=== PATIENT | female | born 1970 | race Caucasian/White ===

== ENCOUNTER → 2018-01-07 | Outpatient (CLI) | payer BC ==
--- NOTE | 2018-01-07 21:38 | CT ---
EXAMINATION TYPE: CT abdomen pelvis w con DATE OF EXAM: 01/07/2018 HISTORY: Left sided Abdominal pain CT DLP: 1501.4mGycm Automated Exposure Control for Dose Reduction was Utilized. CONTRAST: CT scan of the abdomen and pelvis is performed with IV Contrast, patient injected with 100 mL of Omni paque 300. COMPARISON: None. FINDINGS: LUNG BASES: No significant abnormality is appreciated. LIVER/GB: No significant abnormality is appreciated. PANCREAS: No significant abnormality is seen. SPLEEN: No significant abnormality is seen. ADRENALS: No significant abnormality is seen. KIDNEYS: No significant abnormality is seen. BOWEL: Oral contrast reaches level of terminal ileum was some spillage into cecum. There is no suspic ious small or large bowel dilatation. UTERUS/ADNEXA: Uterus is surgically absent or markedly atrophic in appearance. Within right ovary the re is 2.0 x 1.8 cm oval low dense lesion could reflect prominent follicle or simple small ovarian cys t axial image 80. Finding can be further evaluated with pelvic ultrasound if desired. Scattered predo minantly left-sided pelvic phleboliths are seen. Left ovary is less well seen. No suspicious left adn exal mass identified. LYMPH NODES: No greater than 1cm abdominal or pelvic lymph nodes are appreciated. OSSEOUS STRUCTURES: There is some facet arthropathy lower lumbar levels. OTHER: No significant additional abnormality is seen. IMPRESSION: No significant acute finding is seen to account for patient's clinical symptoms.
== END | disposition home or self-care (01) ==
LOC: RADCTMAIN 19:24
PROVIDERS: ATTEND Internal Medicine
DX: K51.518 Left sided colitis with other complication (principal)
CPT/HCPCS: 74177; Q9967

== ENCOUNTER → 2019-08-06 | Outpatient (CLI) | payer BC ==
--- NOTE | 2019-08-07 07:37 | XR ---
EXAMINATION TYPE: XR KUB DATE OF EXAM: 08/06/2019 CLINICAL HISTORY: Nephrolithiasis and back pain TECHNIQUE: Single supine KUB image of the abdomen is obtained. COMPARISON: None. FINDINGS: Cholecystectomy clips are seen within the right upper quadrant. No dilated large or small b owel. Visualized portions of the lung bases are well aerated. There are multiple punctate calcificati ons in the left hemipelvis that are presumed to be on the basis of phleboliths. No calculi are seen a long the courses of the ureters nor overlying the renal shadows. Osseous structures appear intact. IMPRESSION: 1. Multiple punctate calcifications in the low left hemipelvis are presumed to be phleboliths. No rad iographically visible calcifications are seen over the renal shadows.
== END | disposition home or self-care (01) ==
LOC: RADXRMAIN 18:03
PROVIDERS: ATTEND Internal Medicine
DX: N20.0 Calculus of kidney (principal)
CPT/HCPCS: 74018

== ENCOUNTER → 2020-02-25 | Outpatient (CLI) | payer BC ==
[2020-02-25 11:33] LABS: Basophils # (A) 0.1 k/uL (0-0.2); Basophils % (A) 1 %; Eosinophils # (A) 0.2 k/uL (0-0.7); Eosinophils % (A) 3 %; HCT 44.7 % (34.0-46.0); HGB 14.8 gm/dL (11.4-16.0); Lymphocytes # (A) 2.1 k/uL (1.0-4.8); Lymphocytes % (A) 31 %; MCH 28.5 pg (25.0-35.0); MCHC 33.1 g/dL (31.0-37.0); MCV 85.9 fL (80.0-100.0); Monocytes # (A) 0.3 k/uL (0-1.0); Monocytes % (A) 5 %; Neutrophils # (A) 4.1 k/uL (1.3-7.7); Neutrophils % (A) 59 %; Platelet Count 333 k/uL (150-450); RBC 5.21 m/uL (3.80-5.40); RDW 13.1 % (11.5-15.5); WBC 6.9 k/uL (3.8-10.6)
[2020-02-25 12:26] LABS: Erythrocyte Sedimentation Rate 4 mm/hr (0-20)
[2020-02-25 17:01] LABS: C Reactive Protein <0.4 mg/dL (0.0-0.8); Uric Acid 3.1 mg/dL (2.9-7.7)
== END | disposition home or self-care (01) ==
LOC: LABWHC1 11:15
PROVIDERS: ATTEND Orthopaedic Surgery
DX: M25.561 Pain in right knee (principal); Z96.651 Presence of right artificial knee joint
CPT/HCPCS: 36415; 84550; 85025; 85652; 86140

== ENCOUNTER → 2020-09-14 | Outpatient (CLI) | payer BC ==
[2020-09-14 13:23] VITALS: BP 124/84; PULSE 87; RESP 16; TEMP 98
--- NOTE | 2020-09-14 13:31 | P.CONS ---
History of Present Illness - Reason for Consult Consult date: 09/14/20 - Chief Complaint neck and left shoulder pain - History of Present Illness this is a 50-year-old lady with history of neck pain for which she had cervical paravertebral frequency ablation on the right side in our clinic about 6 years ago. She came back today with a new pain on the left side of her neck that has been there for about 2 months and also she has tendinitis in the left shoulder and was seen by an orthopedic surgeon who recommended physical therapy for her left shoulder problem. She occasionally feels numbness and tingling in both hands however this is not a constant complaint. She denies any bowel or bladder dysfunction or any weakness in the lower or upper extremities. The patient takes [id number] medications for her pain. She had a cervical spine MRI which showed mild disc degeneration as with mild edema around the C4 5 facet joint on the right side but did not show any nerve root or spinal cord compression.the patient also feels headache that starts in the back of her head and goes to the front bilaterally. Review of Systems Constitutional: Denies chills, Denies fever Eyes: denies blurred vision, denies pain Ears, nose, mouth and throat: Denies headache, Denies sore throat Musculoskeletal: Reports as per HPI Integumentary: Denies pruritus, Denies rash Neurological: Reports as per HPI Past Medical History Past Medical History: Diabetes Mellitus, Musculoskeletal Disorder, Thyroid Disorder Additional Past Medical History / Comment(s): frequent neck pain, hx migraine headaches, left sided abd. pain, bowel habit changes History of Any Multi-Drug Resistant Organisms: None Reported Past Surgical History: Bladder Surgery, Hysterectomy Additional Past Surgical History / Comment(s): laparotomy for adhesions Past Anesthesia/Blood Transfusion Reactions: Previous Problems w/ Anesthesia, Postoperative Nausea & Vomiting (PONV) Additional Past Anesthesia/Blood Transfusion Reaction / Comm: difficulty waking up after anes. Past Psychological History: No Psychological Hx Reported Smoking Status: Never smoker Past Alcohol Use History: Occasional Past Drug Use History: None Reported - Past Family History Mother Family Medical History: No Reported History Medications and Allergies Home Medications Medication Instructions Recorded Confirmed Type Dicyclomine [Bentyl] 20 mg PO QID PRN 02/01/16 02/03/16 History Levothyroxine Sodium [Synthroid] 50 mcg PO DAILY 02/01/16 02/03/16 History metFORMIN HCL [Glucophage] 500 mg PO TID 02/01/16 02/03/16 History Allergies Allergy/AdvReac Type Severity Reaction Status Date / Time No Known Allergies Allergy Verified 02/01/16 15:02 Physical Exam Vitals: Vital Signs Temp Pulse Resp BP Pulse Ox 09/14/20 13:12 98.0 F 87 16 124/84 97 - Constitutional General appearance: obese - EENT Eyes: PERRLA - Neurologic neuro exam of the upper extremities showed normal and symmetrical muscle strength bilaterally and symmetrically. She has tenderness in the cervical paravertebral musculature on the left side and around the left trapezius. She has limited range of motion of the left shoulder joint to less than 90 abduction. She has mildly decreased range of motion of the cervical spine especially to the left rotation. Neurologic: CNII-XII intact - Psychiatric Psychiatric: A&O x's 3, appropriate affect, intact judgment & insight Assessment and Plan Plan: this is a 50-year-old lady with a history of left-sided neck pain and left shoulder pain due to tendinitis. The patient is undergoing physical therapy for left shoulder pain. Her neck pain may be due to myofascial pain and cervical spondylosis. I think we can start by doing trigger point injection in the left cervical paravertebral musculature and left trapezius muscle and if there is no improvement then we'll plan on doing a diagnostic cervical medial branch block for levels C2 and C3 and third occipital nerve, C4 and C5. I thank you for the referral
== END | disposition home or self-care (01) ==
LOC: PNWHC3 12:35
PROVIDERS: ATTEND Anesthesiology
DX: M54.2 Cervicalgia (principal); M75.22 Bicipital tendinitis, left shoulder; E11.9 Type 2 diabetes mellitus without complications; E07.9 Disorder of thyroid, unspecified; Z79.84 Long term (current) use of oral hypoglycemic drugs; Z79.890 Hormone replacement therapy; Z79.899 Other long term (current) drug therapy
CPT/HCPCS: 99211

== ENCOUNTER 2020-10-25 07:03 | Day surgery (SDC) | payer BC ==
[2020-10-24 12:28] VITALS: BMI 33.7
[~2020-10-25 07:03] MED LIST: LACTATED RINGERS 1,000 ML IV SCH
[2020-10-25 07:19] VITALS: RESP 16; TEMP 96.1
[2020-10-25 07:19] LABS: Glucose,Whole Blood 106 mg/dL (75-99)
[2020-10-25] MEDS ORDERED: methylPREDNISolone ACETATE 40 MG/ML 1 ML VIAL ONE (07:50)
[2020-10-25] MEDS ORDERED: ROPIVACAINE 5MG/ML 20ML VIAL ONE (07:50)
--- NOTE | 2020-10-25 08:06 | P.PCN ---
Date of Procedure: 10/25/20 Procedure(s) Performed: PREOPERATIVE DIAGNOSI= 1-myofascial pain syndrome and cervical and shoulder area . 2- Cervical Spondylosis with Facet Arthropathy.without myelopathy POSTOPERATIVE DIAGNOSIS: Same as preop diagnosis PROCEDURES: Diagnostic = trigger point injection left side cervical paraspinal muscle and left trapezius muscle (Total of 4 trigger point injected on the left side cervical paraspinal muscles and left trapezius muscles ) ANESTHESIA: none . EBL: Minimal PROCEDURE INDICATION: The patient with neck pain secondary to myofascial pain syndrome, unresponsive to more conservative treatments. PROCEDURE DESCRIPTION / TECHNIQUE: The patient was seen and identified in the preoperative area. Risks, benefits, complications, and alternatives were discussed with the patient, the patient agreed to proceed with the procedure and signed . Vital signs remained stable throughout the procedure. Patient was taken to the OR and time out was completed. The patient was placed in the sitting position on the procedure table. The cervical area was prepped and draped in the usual sterile fashion. Critical pause was taken. Vital signs were closely monitored during the procedur. Then after that each of the trigger point injected using ropivacaine 0.5% mixed with 40 mg of Depo-Medrol , and 2 mL of the mixture injected at each trigger point after negative aspiration, actuall y done using 25-gauge needle, under was no paresthesia during the injection Total of 8 ML of ropivacaine 0. 5% was used COMPLICATIONS: No acute complications. DISPOSITION / PLANS: The patient was placed in a supine position and transferred to the recovery area in a stable condition for observation and was discharged from the recovery room after meeting discharge criteria. Home discharge inst ructions given to the patient by the staff. The patient was reexamined prior to discharge. The patient will schedule a follow up in the clinic in 2-4 weeks.
[2020-10-25 08:19] VITALS: BP 104/70; PULSE 82
== END 2020-10-25 08:21 | disposition home or self-care (01) ==
LOC: ORPAIN 07:03
PROVIDERS: ATTEND Specialist
DX: M79.18 Myalgia, other site (principal); M47.812 Spondylosis without myelopathy or radiculopathy, cervical region; E11.9 Type 2 diabetes mellitus without complications; Z90.710 Acquired absence of both cervix and uterus
CPT/HCPCS: 20553; J1030; J2795

== ENCOUNTER → 2020-10-25 | Outpatient (CLI) | payer BC ==
[2020-10-25 15:14] LABS: Basophils # (A) 0.1 k/uL (0-0.2); Basophils % (A) 1 %; Eosinophils # (A) 0.1 k/uL (0-0.7); Eosinophils % (A) 1 %; HCT 44.1 % (34.0-46.0); HGB 14.9 gm/dL (11.4-16.0); Lymphocytes % (A) 11 %; MCH 28.8 pg (25.0-35.0); MCHC 33.8 g/dL (31.0-37.0); MCV 85.4 fL (80.0-100.0); Monocytes # (A) 0.3 k/uL (0-1.0); Monocytes % (A) 4 %; Neutrophils # (A) 7.9 k/uL (1.3-7.7); Neutrophils % (A) 83 %; Platelet Count 256 k/uL (150-450); RBC 5.17 m/uL (3.80-5.40); RDW 13.2 % (11.5-15.5); WBC 9.6 k/uL (3.8-10.6)
[2020-10-25 16:33] LABS: Erythrocyte Sedimentation Rate 8 mm/hr (0-20)
[2020-10-26 03:06] LABS: ALT 18 U/L (8-44); AST 9 U/L (13-35); African American GFR (CKD) 98.9 (60.0-200.0); Albumin/Globulin Ratio 1.92 (1.60-3.17); Alkaline Phosphatase 109 U/L (41-126); C Reactive Protein <0.4 mg/dL (0.0-0.8); Calcium 9.8 mg/dL (8.7-10.3); Carbon Dioxide 23.3 mmol/L (21.6-31.8); Chloride 105 mmol/L (96-109); Globulin 2.4 g/dL (1.6-3.3); Glucose 112 mg/dL (70-110); Non-African American GFR(CKD) 85.4 (60.0-200.0); Potassium 4.2 mmol/L (3.5-5.5); Rheumatoid Factor, Qnt 6 IU/mL (0-15); Sodium 140 mmol/L (135-145); Total Bilirubin 0.5 mg/dL (0.3-1.2); Uric Acid 3.1 mg/dL (2.9-7.7)
[2020-10-26 05:28] LABS: Cyclic Citrull Pep IgG Unit 4.1 U/mL; Cyclic Citrullinated Pep IgG POSITIVE (NEGATIVE)
[2020-10-26 10:42] LABS: Free Kappa Lt Chain Qnt, Serum 1.55 mg/dL (0.33-1.94)
== END | disposition home or self-care (01) ==
LOC: LABWHC1 14:32
PROVIDERS: ATTEND Internal Medicine
DX: M75.02 Adhesive capsulitis of left shoulder (principal)
CPT/HCPCS: 36415; 80053; 83883; 84550; 85025; 85652; 86038; 86140; 86200; 86431

== ENCOUNTER → 2020-11-14 | Outpatient (CLI) | payer BC ==
[2020-11-14 09:39] VITALS: BP 113/50; PULSE 84; RESP 20; TEMP 97.8
--- NOTE | 2020-11-14 10:05 | P.PN ---
Subjective Progress Note Date: 11/14/20 This is a 50-year-old lady with history of neck and left arm pain. When I saw the patient first time she was complaining of neck and left shoulder pain however a few weeks ago the pain started to go down to her left hand with numbness and tingling in all fingers as she states. She describes the pain as burning in quality. She denies any surgeries on the neck on the left shoulder. She takes Lyrica 100 mg at night and Tylenol with Codeine No. 4 occasionally. Patient denies new-onset weakness, bowel/bladder incontinence, or any other signs or symptoms of cauda equina syndrome. There are no signs of acute intoxication, and no indications of medication diversion or overuse. In addition to above, 13-point review of systems is also negative for chest pain, shortness of breath, changes in vision, changes in hearing, new onset weakness, abdominal pain, diarrhea, extreme fatigue, malaise, fever, skin changes, homicidal or suicidal ideation, or bowel or bladder incontinence. Vital Signs: Reviewed in EMR Gen: AAOx3, NAD HEENT: PERRLA,hearing grossly normal Pulm: resp unlabored Neck: supple, trachea midline Neuro exam of the upper extremities: Decreased left elbow flexion and extension strength to 4 out of 5 and decreased left deltoid strength to 4 out of 5 due to shoulder pain. Decreased left biceps reflex compared to the right side and also decreased left triceps reflex. Positive tenderness around the left shoulder joint anteriorly and posteriorly, positive tenderness in the left cervical paravertebral musculature. Decreased range of motion of the left shoulder joint to less than 90 abduction. Neuro: CN II-XII grossly intact, Imaging: Reviewed in EMR/chart Assessment: Cervical spondylosis without radiculopathy Left cervical radiculopathy Left shoulder arthropathy Plan: 1. Explanation: Opioid and psychological risk scores were reviewed. Diagnoses, prognoses, and multiple treatment options including but not limited to physical therapy, interventional therapies, adjuvant medical therapies, narcotic medication therapies, and surgery were discussed with the patient and all questions were answered to the patient's satisfaction. 2. Opioid agreement: Signed with the patient and the patient is warned not to use opioids while driving or before driving and not to combine opioids with benzodiazepines or alcohol. 3. Counseling: The patient was counseled extensively on SMOKING CESSATION, BODY MASS INDEX, EXERCISE. Specifically, the patient was instructed regarding the importance of smoking cessation, obesity, and exercise in the context of both chronic pain and overall health. 4. Procedures: Scheduled for cervical epidural steroid injection under fluoroscopic guidance at C7-T1 level in the left paramedian approach 5. Consultations: None 6. Investigations: None 7. Medications: Increase Lyrica to 100 mg twice a day 8. Disposition: Return to the above-mentioned procedure as soon as possible 9. Maps were reviewed and were appropriate. Objective - Vital Signs Vital signs: Vital Signs Temp 97.8 F 11/14/20 09:33 Pulse 84 11/14/20 09:33 Resp 20 11/14/20 09:33 BP 113/50 11/14/20 09:33 Pulse Ox 96 11/14/20 09:33
== END | disposition home or self-care (01) ==
LOC: PNWHC3 09:20
PROVIDERS: ATTEND Anesthesiology
DX: M47.22 Other spondylosis with radiculopathy, cervical region (principal); M19.012 Primary osteoarthritis, left shoulder; Z79.899 Other long term (current) drug therapy
CPT/HCPCS: 99211

== ENCOUNTER 2020-11-30 06:24 | Emergency (ER) | payer BC ==
[2020-11-30 06:32] VITALS: RESP 18; TEMP 98.9
--- NOTE | 2020-11-30 06:40 | ED ---
Female Urogenital HPI - General Chief complaint: Urogenital Stated complaint: Difficulty urinating post-op Time Seen by Provider: 11/30/20 06:33 Source: patient Mode of arrival: ambulatory Limitations: no limitations - History of Present Illness Initial comments: 50yo female with hx of kidney stone who underwent shoulder surgery yesterday presenting today to the ER for cc of urinary retention. pt states she has has not been urinating since the surgery. Pt states she left the outpatient surgical site at 730PM. . she states that when she does urinate it "dribbles". Pt states she does not believe she had a medrano placed during surgery. pt states that at times the pain does radiate towards the right flank. Patient denies nausea, vomiting, fevers. patient has no additional complaints upon arrival patient appears uncomfortable stating this is a lot of abdominal pressure. - Related Data Home Medications Medication Instructions Recorded Confirmed Atorvastatin Calcium [Lipitor] 20 mg PO HS 09/14/20 11/09/20 FLUoxetine HCL [PROzac] 20 mg PO DAILY 09/14/20 11/09/20 Meloxicam [Mobic] 15 mg PO HS 09/14/20 11/09/20 Omeprazole [PriLOSEC] 20 mg PO DAILY 09/14/20 11/09/20 Pregabalin [Lyrica] 100 mg PO HS 09/14/20 11/09/20 Semaglutide [Ozempic] 0.25 mg SQ Q7DAYS 09/14/20 11/09/20 lisinopriL [Zestril] 2.5 mg PO HS 09/14/20 11/09/20 hydrOXYzine pamoate [Vistaril] 25 mg PO HS 11/09/20 11/09/20 Allergies Allergy/AdvReac Type Severity Reaction Status Date / Time No Known Allergies Allergy Verified 11/30/20 06:32 Review of Systems ROS Statement: Those systems with pertinent positive or pertinent negative responses have been documented in the HPI. ROS Other: All systems not noted in ROS Statement are negative. Past Medical History Past Medical History: Diabetes Mellitus, Musculoskeletal Disorder, Thyroid Disorder Additional Past Medical History / Comment(s): frequent neck pain, hx migraine headaches, left sided abd. pain, bowel habit changes History of Any Multi-Drug Resistant Organisms: None Reported Past Surgical History: Orthopedic Surgery Additional Past Surgical History / Comment(s): laparotomy for adhesions Past Anesthesia/Blood Transfusion Reactions: Previous Problems w/ Anesthesia, Postoperative Nausea & Vomiting (PONV) Additional Past Anesthesia/Blood Transfusion Reaction / Comment(s): difficulty waking up after anes. Past Psychological History: No Psychological Hx Reported Smoking Status: Never smoker Past Alcohol Use History: Occasional Past Drug Use History: None Reported - Past Family History Mother Family Medical History: No Reported History General Exam - General Exam Comments Initial Comments: General: The patient is awake and alert, in no distress, and does not appear acutely ill. Eye: Pupils are equal, round and reactive to light, extra-ocular movements are intact. No nystagmus. There is normal conjunctiva bilaterally. No signs of icterus. Cardiovascular: There is a regular rate and rhythm. No murmur, rub or gallop is appreciated. Respiratory: Lungs are clear to auscultation, respirations are non-labored, breath sounds are equal. No wheezes, stridor, rales, or rhonchi. Gastrointestinal: Soft, non-distended, suprapubic tenderness with supination of the abdomen, abdomen without masses or organomegaly noted. There is no rebound or guarding present. Musculoskeletal: Normal ROM, no tenderness. Strength 5/5. Sensation intact. Radial pulses equal bilaterally 2+. Neurological: A&O x 3. CN II-XII intact grossly, There are no obvious motor or sensory deficits. Coordination appears grossly intact. Speech is normal. Skin: Skin is warm and dry and no rashes or lesions are noted. Psychiatric: Cooperative, appropriate mood & affect, normal judgment. Limitations: no limitations Course Vital Signs 11/30/20 11/30/20 06:31 08:09 Temperature 98.9 F 98.9 F Pulse Rate 108 H 98 Respiratory 18 18 Rate Blood Pressure 133/79 131/89 O2 Sat by Pulse 95 95 Oximetry Medical Decision Making - Medical Decision Making UA unremarkable. hx of bladder sling/post operative scarring. pt did not have medrano catheter placed during procedure yesterday this was confirmed by surgeon (pt texting him personally). Steady drainage ~1500cc from bladder. pt has no significant hydronephrosis. no stone identified. no hematuria. pt states she feels better and at this time i feel she is stable for discharge with pcp and urology f/u. medrano will be left in place. discussed use/return parameters and monitoring for infection. pt discharged appearing well. Dr. Rojas is agreeable to care plan. - Lab Data Lab Results 11/30/20 Range/Units 06:50 Urine Color Yellow Urine Appearance Clear (Clear) Urine pH 6.0 (5.0-8.0) Ur Specific [place] 1.013 (1.001-1.035) Urine Protein Negative (Negative) Urine Glucose (UA) 2+ H (Negative) Urine Ketones Negative (Negative) Urine Blood Negative (Negative) Urine Nitrite Negative (Negative) Urine Bilirubin Negative (Negative) Urine Urobilinogen <2.0 (<2.0) mg/dL Ur Leukocyte Esterase Negative (Negative) Disposition Clinical Impression: Urinary retention Disposition: HOME SELF-CARE Condition: Good Instructions (If sedation given, give patient instructions): Acute Urinary Retention in Women (ED) Additional Instructions: Please use medication as discussed. Please follow-up with family doctor in the next 2 days, urology in the next week. Please return to emergency room if the symptoms increase or worsen or for any other concerns. Is patient prescribed a controlled substance at d/c from ED?: No Referrals: Celia Ortega MD [Primary Care Provider] - 1-2 days Musa Wright MD [STAFF PHYSICIAN] - 1-2 days Time of Disposition: 07:40
[2020-11-30 07:02] LABS: Appearance,Urine Clear (Clear); Bilirubin,Urine Negative (Negative); Blood,Urine Negative (Negative); Color,Urine Yellow; Glucose,Urine (UA) 2+ (Negative); Ketones,Urine Negative (Negative); Leukocyte Esterase,Urine Negative (Negative); Nitrite,Urine Negative (Negative); Protein,Urine Negative (Negative); Specific Gravity,Urine 1.013 (1.001-1.035); Urobilinogen,Urine <2.0 mg/dL (<2.0)
--- NOTE | 2020-11-30 07:33 | US ---
EXAMINATION TYPE: US renals and bladder DATE OF EXAM: 11/30/2020 COMPARISON: NONE CLINICAL HISTORY: 50-year-old female urinary retention. TECHNIQUE: Multiple sonographic images of the kidneys are obtained. FINDINGS: EXAM MEASUREMENTS: Right Kidney: 11.3 x 4.6 x4.8 cm Left Kidney: 11.2 x 5.7 x 5.4 cm Retail Selling Floor Leader notes: Patient of large body habitus. Technically difficult and limited study. Right Kidney: no obvious hydronephrosis, limited visualization Left Kidney: no obvious hydronephrosis, limited visualization Bladder: Suboptimally visualized as there is a Mccrary in place IMPRESSION: Technically difficult and limited exam. No hydronephrosis seen. Mccrary catheter decompresses the bladd er.
[2020-11-30 08:11] VITALS: BP 131/89; PULSE 98
== END 2020-11-30 08:11 | disposition home or self-care (01) ==
LOC: EC 06:24
DX: R33.9 Retention of urine, unspecified (principal); R30.0 Dysuria; E11.9 Type 2 diabetes mellitus without complications; Z79.1 Long term (current) use of non-steroidal anti-inflammatories (NSAID); Z79.899 Other long term (current) drug therapy; Z79.84 Long term (current) use of oral hypoglycemic drugs
CPT/HCPCS: 51702; 76770; 81003; 99284

== ENCOUNTER → 2020-12-22 | Outpatient (CLI) | payer BC ==
[2020-12-22 13:24] LABS: Basophils # (A) 0.1 k/uL (0-0.2); Basophils % (A) 1 %; Eosinophils # (A) 0.3 k/uL (0-0.7); Eosinophils % (A) 4 %; HGB 14.1 gm/dL (11.4-16.0); Lymphocytes # (A) 1.6 k/uL (1.0-4.8); Lymphocytes % (A) 24 %; MCH 28.4 pg (25.0-35.0); MCHC 32.1 g/dL (31.0-37.0); MCV 88.5 fL (80.0-100.0); Mean Platelet Volume 7.4; Monocytes # (A) 0.3 k/uL (0-1.0); Monocytes % (A) 5 %; Neutrophils # (A) 4.3 k/uL (1.3-7.7); Neutrophils % (A) 64 %; Platelet Count 279 k/uL (150-450); RBC 4.98 m/uL (3.80-5.40); RDW 14.1 % (11.5-15.5); WBC 6.8 k/uL (3.8-10.6)
[2020-12-22 14:58] LABS: Erythrocyte Sedimentation Rate 6 mm/hr (0-20)
[2020-12-22 20:53] LABS: ALT 29 U/L (8-44); AST 12 U/L (13-35); African American GFR (CKD) 98.9 (60.0-200.0); Alkaline Phosphatase 109 U/L (41-126); Bilirubin, Conjugated <0.20 mg/dL (0.20-0.40); C Reactive Protein <0.4 mg/dL (0.0-0.8); Calcium 9.4 mg/dL (8.7-10.3); Carbon Dioxide 26.3 mmol/L (21.6-31.8); Chloride 106 mmol/L (96-109); Non-African American GFR(CKD) 85.4 (60.0-200.0); Potassium 4.5 mmol/L (3.5-5.5); Sodium 140 mmol/L (135-145); Total Bilirubin 0.4 mg/dL (0.2-1.2); Total Protein 6.3 g/dL (6.2-8.2)
== END | disposition home or self-care (01) ==
LOC: LABWHC1 12:14
PROVIDERS: ATTEND Internal Medicine Rheumatology
DX: M06.4 Inflammatory polyarthropathy (principal); Z79.899 Other long term (current) drug therapy
CPT/HCPCS: 36415; 80051; 82040; 82247; 82310; 82565; 84075; 84155; 84450; 84460; 84520; 85025; 85652; 86140

== ENCOUNTER 2021-01-24 06:13 | Day surgery (SDC) | payer BC ==
[2021-01-19 14:53] VITALS: BMI 34.0
[2021-01-24] MEDS ORDERED: LIDOCAINE 1% (10MG/ML) FOR IV START INTRADERMA ONE (06:35)
[2021-01-24 06:44] LABS: Glucose,Whole Blood 123 mg/dL (75-99)
[2021-01-24 06:49] VITALS: RESP 16; TEMP 97.9
[2021-01-24] MEDS ORDERED: fentaNYL (PF) 50 MCG/ML 2 ML AMP ONE (06:50)
[2021-01-24] MEDS ORDERED: DEXAMETHASONE SOD PHOSPHATE 10 MG/ML 1 ML VIAL ONE (06:50)
[2021-01-24] MEDS ORDERED: MIDAZOLAM 2 MG/2 ML VIAL ONE (06:50)
[2021-01-24] MEDS ORDERED: IOPAMIDOL M200 10 ML VIAL ONE (06:50)
--- NOTE | 2021-01-24 07:17 | P.PCN ---
Date of Procedure: 01/24/21 Procedure(s) Performed: . PROCEDURE 1. Cervical epidural steroid injection under fluoroscopic guidance, C7-T1 ( left paramedian approach )(fluoroscopy images available in the radiology department ) 2. Cervical epidurogram. PREOPERATIVE DIAGNOSIS: 1- Cervical Degenerative Disc Diseases 2- Cervical radiculopathy., 3-cervical spondylosis with cervical Facet arthropathy without myelopathy POSTOPERATIVE DIAGNOSIS: : 1- Cervical Degenerative Disc Diseases , 2- Cervical radiculopathy. 3-,cervical spondylosis with cervical Facet arthropathy without myelopathy ANESTHESIA: Local anesthesia with lidocaine 1 % , and moderate sedation, with Versed 1 mg and Fentanyl 50 mcg. EBL 0 PROCEDURE INDICATION: The patient with neck pain and radiculitis unresponsive to conservative treatment consents for procedure. PROCEDURE DESCRIPTION / TECHNIQUE: The patient was seen and identified in the preoperative area. Risks, benefits, complications, including but not limited to infections ,bleeding , allergic reactions to the medications ,and not complete pain releife, and alternatives were discussed with the patient, the patient agreed to proceed with the procedure and signed the consent. Patient was taken to the OR and time out was completed. The patient was placed in the prone position on the procedure table. A pillow was placed under the patients chest to increase the cervical interlaminar space. The cervical area was prepped and draped in the usual sterile fashion. Vital signs were closely monitored during the procedure. Conscious sedation was used during the procedure to decrease patients anxiety. Using anterior-posterior fluoroscopy, the C7-T1 interlaminar space was identifi ed and the skin over this site was marked and then infiltrated with 1% lidocaine subcutaneously. Subsequently, a 20-gauge 3-1/2-inch Tuohy epidural needle was inserted and advanced toward the epidural space by means of the ``hanging-drop technique and guided by AP and lateral fluoroscopy.the correct needle position in the epidural space was verified with the injection of 2 mL of the water soluble contrast dye Isovue-200 and observing an excellent epidurogram with the epidural spread of the dye, after negative aspiration for blood and CSF and in the absence of paresthesias. then mixture containing 15 mg Dexamethasone and 2 ml of preservative-free normal saline injected and a washout of epidurogram was seen. Needle was withdrawn intact, skin was cleansed, and bandages were applied. Complications= none. Disposition= patient was placed in supine position and transferred to the recovery room area in stable condition and there was no evidence of upper or lower extremity motor or sensory deficit after the procedure patient was discharged from recovery room after discharge criteria met and home discharge instructions was given by the staff and patient will follow with the pain clinic in 2-4 weeks
--- NOTE | 2021-01-24 07:24 | FL ---
EXAMINATION TYPE: FL guided pain mgmt statistic DATE OF EXAM: 01/24/2021 CLINICAL HISTORY: Neck pain. TECHNIQUE: Fluoroscopy. COMPARISON: None. FINDINGS: Fluoroscopic guidance was provided during pain relief procedure performed by Dr. Herbert . A total of 3 seconds of fluoroscopic time was utilized during the procedure and 1 spot image is ac quired. Single image acquired shows needle localization near the cervicothoracic junction. IMPRESSION: As Above.
[2021-01-24 07:34] VITALS: BP 120/74; PULSE 79
[2021-01-24] MEDS ORDERED: IV FLUID CONTINUATION 1,000 ML IV ONE (07:37)
== END 2021-01-24 07:48 | disposition home or self-care (01) ==
LOC: ORPAIN 06:13
PROVIDERS: ATTEND Specialist
DX: M50.10 Cervical disc disorder with radiculopathy, unspecified cervical region (principal); M47.22 Other spondylosis with radiculopathy, cervical region; M79.18 Myalgia, other site; E11.9 Type 2 diabetes mellitus without complications; Z90.710 Acquired absence of both cervix and uterus
CPT/HCPCS: 62321; J2250; J1100; J3010; Q9966

== ENCOUNTER → 2021-01-25 | Outpatient (CLI) | payer BC ==
[2021-01-25 19:18] LABS: Basophils # (A) 0.03 X 10*3/uL (0.00-0.10); Basophils % (A) 0.2 %; Eosinophils # (A) 0.01 X 10*3/uL (0.04-0.35); Eosinophils % (A) 0.1 %; HCT 39.6 % (37.2-46.3); HGB 13.2 g/dL (12.0-15.0); Lymphocytes # (A) 1.65 X 10*3/uL (0.90-5.00); Lymphocytes % (A) 10.8 %; MCHC 33.3 g/dL (32.0-37.0); Mean Platelet Volume 10.7 fL (9.5-12.2); Monocytes % (A) 5.9 %; Neutrophils # (A) 12.65 X 10*3/uL (1.80-7.70); Neutrophils % (A) 82.6 %; Platelet Count 297 X 10*3/uL (140-440); RBC 4.55 X 10*6/uL (4.10-5.20)
[2021-01-25 21:09] LABS: African American GFR (CKD) 116.3 (60.0-200.0); Albumin 4.5 g/dL (3.80-4.90); Albumin/Globulin Ratio 2.37 (1.60-3.17); BUN/Creat Ratio 22.86 Ratio (12.00-20.00); Calcium 9.4 mg/dL (8.7-10.3); Chol/HDL Ratio 2.89; Globulin 1.9 g/dL (1.6-3.3); LDL Cholesterol,Calculated 87.2 mg/dL (0.0-131.0); Non-African American GFR(CKD) 100.3 (60.0-200.0); Potassium 3.8 mmol/L (3.5-5.5); Total Bilirubin 0.5 mg/dL (0.2-1.2); Total Protein 6.4 g/dL (6.2-8.2); VLDL Calculation 18.8 mg/dL (5.00-40.00)
[2021-01-25 21:16] LABS: Follicle Stimulating Hormone 12.4 mIU/mL
[2021-01-25 21:54] LABS: Hemoglobin A1C 5.9 % (4.0-6.0)
== END | disposition home or self-care (01) ==
LOC: LABWHC1 11:26
PROVIDERS: ATTEND Internal Medicine
DX: Z00.00 Encounter for general adult medical examination without abnormal findings (principal); I10 Essential (primary) hypertension; E11.9 Type 2 diabetes mellitus without complications; E78.2 Mixed hyperlipidemia; N95.1 Menopausal and female climacteric states
CPT/HCPCS: 36415; 80053; 80061; 82672; 83001; 83036; 84443; 85025

== ENCOUNTER → 2021-02-20 | Outpatient (CLI) | payer BC ==
[2021-02-20 19:57] LABS: ALT 47 U/L (8-44); AST 39 U/L (13-35); African American GFR (CKD) 98.9 (60.0-200.0); Alkaline Phosphatase 93 U/L (41-126); C Reactive Protein <0.4 mg/dL (0.0-0.8); Calcium 9.4 mg/dL (8.7-10.3); Chloride 107 mmol/L (96-109); Non-African American GFR(CKD) 85.4 (60.0-200.0); Potassium 4.2 mmol/L (3.5-5.5); Sodium 140 mmol/L (135-145); Total Protein 6.5 g/dL (6.2-8.2)
[2021-02-20 21:30] LABS: Basophils # (A) 0.06 X 10*3/uL (0.00-0.10); Basophils % (A) 0.9 %; Eosinophils # (A) 0.18 X 10*3/uL (0.04-0.35); Eosinophils % (A) 2.7 %; HCT 43.2 % (37.2-46.3); HGB 13.6 g/dL (12.0-15.0); Lymphocytes # (A) 1.34 X 10*3/uL (0.90-5.00); Lymphocytes % (A) 19.8 %; MCH 28.7 pg (27.0-32.0); MCHC 31.5 g/dL (32.0-37.0); MCV 91.1 fL (80.0-97.0); Mean Platelet Volume 10.8 fL (9.5-12.2); Monocytes # (A) 0.46 X 10*3/uL (0.20-1.00); Monocytes % (A) 6.8 %; Neutrophils # (A) 4.69 X 10*3/uL (1.80-7.70); Neutrophils % (A) 69.4 %; Platelet Count 289 X 10*3/uL (140-440); RBC 4.74 X 10*6/uL (4.10-5.20); RDW 13.7 % (11.5-14.5); WBC 6.76 X 10*3/uL (4.50-10.00)
[2021-02-20 23:04] LABS: Erythrocyte Sedimentation Rate 4 mm/Hr (0-30)
== END | disposition home or self-care (01) ==
LOC: LABWHC1 12:57
PROVIDERS: ATTEND Internal Medicine Rheumatology
DX: M06.4 Inflammatory polyarthropathy (principal); Z79.899 Other long term (current) drug therapy
CPT/HCPCS: 36415; 80051; 82040; 82310; 82565; 84075; 84155; 84450; 84460; 84520; 85025; 85652; 86140

== ENCOUNTER 2021-02-21 06:20 | Day surgery (SDC) | payer BC ==
[2021-02-21 06:42] VITALS: TEMP 98.2
[2021-02-21] MEDS ORDERED: LIDOCAINE 1% (10MG/ML) FOR IV START INTRADERMA ONE (06:48)
[2021-02-21] MEDS ORDERED: LACTATED RINGERS 1,000 ML IV ONE (06:48)
[2021-02-21 06:53] LABS: Glucose,Whole Blood 129 mg/dL (75-99)
[2021-02-21] MEDS ORDERED: DEXAMETHASONE SOD PHOSPHATE 10 MG/ML 1 ML VIAL ONE (06:54)
[2021-02-21] MEDS ORDERED: fentaNYL (PF) 50 MCG/ML 2 ML AMP ONE (06:54)
[2021-02-21] MEDS ORDERED: IOPAMIDOL M200 10 ML VIAL ONE (06:54)
[2021-02-21] MEDS ORDERED: MIDAZOLAM 2 MG/2 ML VIAL ONE (06:54)
--- NOTE | 2021-02-21 07:09 | P.PCN ---
Date of Procedure: 02/21/21 Procedure(s) Performed: PROCEDURE 1. Cervical epidural steroid injection under fluoroscopic guidance, C7-T1 (fluoroscopy images available in the radiology department ) 2. Cervical epidurogram. PREOPERATIVE DIAGNOSIS: 1- Cervical Degenerative Disc Diseases 2- Cervical radiculopathy., 3-cervical spondylosis with cervical Facet arthropathy without myelopathy POSTOPERATIVE DIAGNOSIS: : 1- Cervical Degenerative Disc Diseases , 2- Cervical radiculopathy. 3-,cervical spondylosis with cervical Facet arthropathy without myelopathy ANESTHESIA: Local anesthesia with lidocaine 1 % , and moderate sedation, with Versed 2 mg and Fentanyl 50 mcg. EBL 0 PROCEDURE INDICATION: The patient with neck pain and radiculitis unresponsive to conservative treatment consents for procedure. PROCEDURE DESCRIPTION / TECHNIQUE: The patient was seen and identified in the preoperative area. Risks, benefits, complications, including but not limited to infections ,bleeding , allergic reactions to the medications ,and not complete pain releife, and alternatives were discussed with the patient, the patient agreed to proceed with the procedure and signed the consent. Patient was taken to the OR and time out was completed. The patient was placed in the prone position on the procedure table. A pillow was placed under the patients chest to increase the cervical interlaminar space. The cervical area was prepped and draped in the usual sterile fashion. Vital signs were closely monitored during the procedure. Conscious sedation was used during the procedure to decrease patients anxiety. Using anterior-posterior fluoroscopy, the C7-T1 interlaminar space was identified and the skin over this site was marked and then infiltrated with 1% lidocaine subcutaneously. Subsequently, a 20-gauge 3-1/2-inch Tuohy epidural needle was inserted and advanced toward the epidural space by means of the ``hanging-drop technique and guided by AP and lateral fluoroscopy.the correct needle position in the epidural space was verified with the injection of 2 mL of the water soluble contrast dye Isovue-200 and observing an excellent epidurogram with the epidural spread of the dye, after negative aspiration for blood and CSF and in the absence of paresthesias. then mixture containing 15 mg Dexamethasone and 2 ml of preservative-free normal saline injected and a washout of epidurogram was seen. Needle was withdrawn intact, skin was cleansed, and bandages were applied. Complications= none. Disposition= patient was placed in supine position and transferred to the recovery room area in stable condition and there was no evidence of upper or lower extremity motor or sensory deficit after the procedure patient was discharged from recovery room after discharge criteria met and home discharge instructions was given by the staff and patient will follow with the pain clinic in 2-4 weeks
[2021-02-21 07:21] VITALS: RESP 18
[2021-02-21] MEDS ORDERED: IV FLUID CONTINUATION 1,000 ML IV ONE (07:22)
[2021-02-21] MEDS ORDERED: LACTATED RINGERS 1,000 ML IV SCH (07:24)
[2021-02-21 07:39] VITALS: BP 127/78; PULSE 78
--- NOTE | 2021-02-21 10:11 | FL ---
EXAMINATION TYPE: FL guided pain mgmt statistic DATE OF EXAM: 02/21/2021 CLINICAL HISTORY: Neck pain. TECHNIQUE: Fluoroscopy. COMPARISON: None. FINDINGS: Fluoroscopic guidance was provided during pain relief procedure performed by Dr. Herbert . A total of 1 second of fluoroscopic time was utilized during the procedure and 1 spot intraoperati ve image are acquired. Single image acquired shows needle localization at roughly C6 level. IMPRESSION: As Above.
== END 2021-02-21 07:51 | disposition home or self-care (01) ==
LOC: ORPAIN 06:20
PROVIDERS: ATTEND Specialist
DX: M47.22 Other spondylosis with radiculopathy, cervical region (principal); M50.10 Cervical disc disorder with radiculopathy, unspecified cervical region
CPT/HCPCS: 62321; J2250; J1100; J3010; Q9966; 99152

== ENCOUNTER → 2021-03-08 | Outpatient (CLI) | payer BC ==
[2021-03-08 09:37] VITALS: BP 126/84; PULSE 92; RESP 16; TEMP 98.1
--- NOTE | 2021-03-08 10:03 | P.PN ---
Subjective Progress Note Date: 03/08/21 This is a follow visit for this 50 years old female with a history of severe neck pain with radiation to the left shoulder area, she is diagnosed with cervical degenerative disc disease and cervical spondylosis, and left shoulder arthralgia and myofascial pain syndrome, recently we have done cervical epidural steroid injections and she had minimal benefit from it, and previously we have done trigger point injection she had minimal benefit from, currently she is complaining of severe neck pain mostly on the left side (but it is bilateral ), with radiation to the left shoulder, she finished physical therapy, she states improved her mobility in the left shoulder, she reported that the pain is constant, increased with any activities especially neck movement, she denies any motor or sensory deficit, she denies any change in the bowel movement or urination Objective - Vital Signs Vital signs: Vital Signs Temp 98.1 F 03/08/21 09:34 Pulse 92 03/08/21 09:34 Resp 16 03/08/21 09:34 BP 126/84 03/08/21 09:34 Pulse Ox 97 03/08/21 09:34 Intake & Output 03/07/21 03/08/21 03/08/21 18:59 06:59 18:59 Weight 108.862 kg - Constitutional Constitutional Comment(s): Physical Examinations : -Constitutiona : Cooperative , not in acute distress . -HEENT : nech : supple , no Lymphadenopathy , normal thyroid size . : eyes : no ptosis , no icterus, no photophobia . - neurologic : Cranial nerve II to XII intact , no focal neurological deffecit . -psychatric : alert , oriented X 3 , appropriate affect , intact judgment and insight . -Lymphatic : no Lymphadenopathy . - musculoskeltal : Cervical Spine motor stregnth in the deltoid and biceps, normal right side , normal Left side motor stregnth biceps and the wrist extensors normal right side ,normal left side . motor stregnth in the triceps muscle . normal Right side , normal Left side deep tendon reflexes normal at the biceps , normal at Brachioradialis , normal at triceps. cervical facet loading test: Positive Bilaterally Spurling test= positive Right , positive left. Neck distraction test= positive Right , positive left. Ashley sign= positive right, positive left . Shoulder exam= decrease abduction and abduction, and left rotation of the left shoulder Lumber spine moter stegnth lower extremities ,thigh and legs 5/5 Right side , 5/5 Left side MRI of the cervical spine multilevel cervical degenerative disc disease and multilevel cervical spondylosis Assessment and Plan Plan: Assessment and plan=1-cervical degenerative disc disease. 2-cervical spondylosis with cervical facet arthropathy. 3-left shoulder arthralgia. Patient continued to have severe neck pain after cervical epidural steroid injection, she continued to have severe neck pain after physical therapy, she will be good candidate to have diagnostic medial branch block cervical area at C3, C4, C5, bilaterally and possible RFA - PQRS measures = - Patient's medications are documented in the chart. -Tobacco use is negative and counseling.Given. -Patient's has not received pneumococcal vaccine. -Advanced care planning discussed, patient not eligible. -Opiate contract not signed. -Pain positive and follow-up visit/procedure is scheduled. -Patient's blood pressure measured [ 126/84 ] , and documented in the record ,and patient will follow up with the primary care. -Patient's weight was measured and body mass index [ ] above the normal limits and counseling was done. and patient instructed to follow-up with the primary care physician. -Patient was not identified as an unhealthy alcohol user Time with Patient: Less than 30
== END ==
LOC: PNWHC3 09:06
PROVIDERS: ATTEND Specialist
DX: M50.30 Other cervical disc degeneration, unspecified cervical region (principal); M47.812 Spondylosis without myelopathy or radiculopathy, cervical region; M25.512 Pain in left shoulder
CPT/HCPCS: 99211

== ENCOUNTER 2021-03-31 09:29 | Day surgery (SDC) | payer BC ==
[2021-03-29 12:21] VITALS: BMI 37.5
[2021-03-31] MEDS ORDERED: LACTATED RINGERS 1,000 ML IV ONE (09:54)
[2021-03-31 09:55] VITALS: TEMP 97.5
[2021-03-31 10:02] LABS: Glucose,Whole Blood 104 mg/dL (75-99)
[2021-03-31] MEDS ORDERED: methylPREDNISolone ACETATE 40 MG/ML 1 ML VIAL ONE (10:43)
[2021-03-31] MEDS ORDERED: ROPIVACAINE 5MG/ML 20ML VIAL ONE (10:43)
[2021-03-31] MEDS ORDERED: MIDAZOLAM 2 MG/2 ML VIAL ONE (10:44)
[2021-03-31] MEDS ORDERED: fentaNYL (PF) 50 MCG/ML 2 ML AMP ONE (10:44)
--- NOTE | 2021-03-31 11:06 | P.PCN ---
Date of Procedure: 03/31/21 Procedure(s) Performed: PREOPERATIVE DIAGNOSIS: Cervical Spondylosis with Facet Arthropathy.without myelopathy POSTOPERATIVE DIAGNOSIS: Cervical Spondylosis Facet Arthropathy. Without myelopathy PROCEDURES: Diagnostic Bilateral C3, C4 , C5 medial branch blocks, with fluoroscopic guidance (fluoroscopy images available in radiology department ) ( to target the facet joint at C3-4 , C4- 5 ) ANESTHESIA: Monitored anesthesia care as per anesthesia department. EBL: Minimal PROCEDURE INDICATION: The patient with neck pain secondary to cervical arthropathy unresponsive to more conservative treatments. PROCEDURE DESCRIPTION / TECHNIQUE: The patient was seen and identified in the preoperative area. Risks, benefits, complications, and alternatives were discussed with the patient, the patient agreed to proceed with the procedure and signed the consent. IV was started. Vital signs remained stable throughout the procedure. Patient was taken to the OR and time out was completed. The patient was placed in the prone position on the procedure table. A pillow was placed under the patients chest to increase the cervical interlaminar space. The cervical area was prepped and draped in the usual sterile fashion. Critical pause was taken. Vital signs were closely monitored during the procedure. Conscious sedation was used during the procedure to decrease patients anxiety. Using cross-table lateral fluoroscopy, the centroid of the trapezoid of right C3, C4 , C5 was identified, marked, and localized with 1% lidocaine 1 ml at each level for skin and Sub Q infiltrations . Subsequently, a 22 G 3 spinal needle was advanced guided by fluoroscopy to the centroid of the trapezoid of Right C3, C4 , C5,. [place] tip position was confirmed at the centroid of the trapezoids of Right C3 , C4 , C5 , with anteroposterior fluoroscopy. Subsequently, 1.5 ml of preservative-free Ropivacaine 0.5% mixed with Depo- Medrol 20 mg and half ml of the mixture was injected after negative aspiration for blood and CSF. [place] was then removed intact the same procedure was repeated at the left C3 , C4 , C5 ,levels. COMPLICATIONS: No acute complications. DISPOSITION / PLANS: The patient was placed in a supine position and transferred to the recovery area in a stable condition for observation and was discharged from the recovery room after meeting discharge criteria. Home discharge instructions given to the patient by the staff. The patient was reexamined prior to discharge. The patient will schedule a follow up in the clinic in 2-4 weeks.
[2021-03-31 11:12] VITALS: RESP 16
[2021-03-31] MEDS ORDERED: ONDANSETRON 4 MG/2 ML VIAL ONE (11:16)
[2021-03-31] MEDS ORDERED: ONDANSETRON 4 MG/2 ML VIAL IVP ONE (11:17)
--- NOTE | 2021-03-31 11:25 | FL ---
Fluoroscopy History: Bilateral Cervical Facet Block BILAT CERVICAL FACET BLOCK, DONE WITH DR. ORTIZ, 11 SEC FLUORO TIME.
[2021-03-31 11:26] VITALS: BP 103/54; PULSE 85
[2021-03-31] MEDS ORDERED: IV FLUID CONTINUATION 1,000 ML IV ONE (11:36)
== END 2021-03-31 11:42 | disposition home or self-care (01) ==
LOC: ORPAIN 09:29
PROVIDERS: ATTEND Specialist
DX: M47.812 Spondylosis without myelopathy or radiculopathy, cervical region (principal); E78.5 Hyperlipidemia, unspecified; E11.9 Type 2 diabetes mellitus without complications; R20.0 Anesthesia of skin; R53.1 Weakness; G43.909 Migraine, unspecified, not intractable, without status migrainosus; Z79.84 Long term (current) use of oral hypoglycemic drugs; Z79.1 Long term (current) use of non-steroidal anti-inflammatories (NSAID); Z79.899 Other long term (current) drug therapy
CPT/HCPCS: 64490; 64491; J2250; J1030; J2405; J3010; J2795

== ENCOUNTER 2021-04-28 06:36 | Day surgery (SDC) | payer BC ==
[2021-04-27 11:05] VITALS: BMI 36.1
[2021-04-28] MEDS ORDERED: ONDANSETRON 4 MG/2 ML VIAL ONE (07:05)
[2021-04-28 07:06] LABS: Glucose,Whole Blood 130 mg/dL (75-99)
[2021-04-28] MEDS ORDERED: LIDOCAINE 1% (10MG/ML) FOR IV START INTRADERMA ONE (07:06)
[2021-04-28 07:11] VITALS: TEMP 97.3
[2021-04-28] MEDS ORDERED: MIDAZOLAM 2 MG/2 ML VIAL ONE (07:32)
[2021-04-28] MEDS ORDERED: ROPIVACAINE 5MG/ML 20ML VIAL ONE (07:32)
[2021-04-28] MEDS ORDERED: fentaNYL (PF) 50 MCG/ML 2 ML AMP ONE (07:32)
[2021-04-28] MEDS ORDERED: methylPREDNISolone ACETATE 40 MG/ML 1 ML VIAL ONE (07:32)
[2021-04-28] MEDS ORDERED: IV FLUID CONTINUATION 700 ML IV ONE (08:04)
--- NOTE | 2021-04-28 08:04 | P.PCN ---
Date of Procedure: 04/28/21 Procedure(s) Performed: PREOPERATIVE DIAGNOSIS: Cervical Spondylosis with Facet Arthropathy.without myelopathy POSTOPERATIVE DIAGNOSIS: Cervical Spondylosis Facet Arthropathy. Without myelopathy PROCEDURES: Diagnostic Bilateral C3, C4 , C5 medial branch blocks, with fluoroscopic guidance (fluoroscopy images available in radiology department ) ( to target the facet joint at C3-4 , C4- 5 ) ANESTHESIA: Monitored anesthesia care as per anesthesia department. EBL: Minimal PROCEDURE INDICATION: The patient with neck pain secondary to cervical arthropathy unresponsive to more conservative treatments. PROCEDURE DESCRIPTION / TECHNIQUE: The patient was seen and identified in the preoperative area. Risks, benefits, complications, and alternatives were discussed with the patient, the patient agreed to proceed with the procedure and signed the consent. IV was started. Vital signs remained stable throughout the procedure. Patient was taken to the OR and time out was completed. The patient was placed in the prone position on the procedure table. A pillow was placed under the patients chest to increase the cervical interlaminar space. The cervical area was prepped and draped in the usual sterile fashion. Critical pause was taken. Vital signs were closely monitored during the procedure. Conscious sedation was used during the procedure to decrease patients anxiety. Using cross-table lateral fluoroscopy, the centroid of the trapezoid of right C3, C4 , C5 was identified, marked, and localized with 1% lidocaine 1 ml at each level for skin and Sub Q infiltrations . Subsequently, a 22 G 3 spinal needle was advanced guided by fluoroscopy to the centroid of the trapezoid of Right C3, C4 , C5,. [place] tip position was confirmed at the centroid of the trapezoids of Right C3 , C4 , C5 , with anteroposterior fluoroscopy. Subsequently, 1.5 ml of preservative-free Ropivacaine 0.5% mixed with Depo- Medrol 20 mg and half ml of the mixture was injected after negative aspiration for blood and CSF. [place] was then removed intact the same procedure was repeated at the left C3 , C4 , C5 ,levels. COMPLICATIONS: No acute complications. DISPOSITION / PLANS: The patient was placed in a supine position and transferred to the recovery area in a stable condition for observation and was discharged from the recovery room after meeting discharge criteria. Home discharge instructions given to the patient by the staff. The patient was reexamined prior to discharge. The patient will schedule a follow up in the clinic in 2-4 weeks.
[2021-04-28 08:42] VITALS: BP 112/76; PULSE 77; RESP 20
--- NOTE | 2021-04-28 09:00 | FL ---
EXAMINATION TYPE: FL guided pain mgmt statistic DATE OF EXAM: 04/28/2021 CLINICAL HISTORY: Neck pain. TECHNIQUE: Fluoroscopy. COMPARISON: None. FINDINGS: Fluoroscopic guidance was provided during pain relief procedure performed by Dr. Herbert . A total of 19 seconds of fluoroscopic time was utilized during the procedure and two spot images a re acquired. Images acquired shows needle localization at several levels in the cervical spine. IMPRESSION: As Above.
== END 2021-04-28 08:44 | disposition home or self-care (01) ==
LOC: ORPAIN 06:36
PROVIDERS: ATTEND Specialist
DX: M47.812 Spondylosis without myelopathy or radiculopathy, cervical region (principal); E78.5 Hyperlipidemia, unspecified; K21.9 Gastro-esophageal reflux disease without esophagitis; Z79.899 Other long term (current) drug therapy
CPT/HCPCS: 64490; 64491; J2250; J1030; J3010; J2795

== ENCOUNTER → 2021-06-12 | Outpatient (CLI) | payer BC ==
[2021-06-12 12:47] VITALS: BP 123/64; PULSE 78; RESP 18; TEMP 98.5
--- NOTE | 2021-06-15 14:09 | P.PN ---
Subjective Progress Note Date: 06/12/21 This is a follow visit for this 51 years old female with a history of severe neck pain with radiation to the left shoulder area, she is diagnosed with cervical degenerative disc disease and cervical spondylosis, and left shoulder arthralgia and myofascial pain syndrome, recently we have done cervical medial branch block C3 C4 C5 bilaterally , she reported that she had more than 70-80% improvement of her neck pain , after the block, and the pain relief was only for short-term ,currently she is complaining of severe neck pain mostly on the left side (but it is bilateral ), with radiation to the left shoulder, she finished physical therapy, she states improved her mobility in the left shoulder, she r eported that the pain is constant, increased with any activities especially neck movement, she denies any motor or sensory deficit, she denies any change in the bowel movement or urination Physical Examinations : -Constitutiona : Cooperative , not in acute distress . -HEENT : nech : supple , no Lymphadenopathy , normal th yroid size . : eyes : no ptosis , no icterus, no photophobia . - neurologic : Cranial nerve II to XII intact , no focal neurological deffecit . -psychatric : alert , oriented X 3 , appropriate affect , intact judgment and insight . -Lymphatic : no Lymphadenopathy . - musculoskeltal : Cervical Spine motor stregnth in the deltoid and biceps, normal right side , normal Left side motor stregnth biceps and the wrist extensors normal right side ,normal left side . motor stregnth in the triceps muscle . normal Right side , normal Left side deep tendon reflexes normal at the biceps , normal at Brachioradialis , normal at triceps. cervical facet loading test: Positive Bilaterally Spurling test= positive Right , positive left. Neck distraction test= positive Right , positive left. Ashley sign= positive right, positive left . Shoulder exam= decrease abduction and abduction, and left rotation of the left shoulder Lumber spine moter stegnth lower extremities ,thigh and legs 5/5 Right side , 5/5 Left side MRI of the cervical spine multilevel cervical degenerative disc disease and multilevel cervical spondylosis Assessment and Plan Plan: Assessment and plan=1-cervical degenerative disc disease. 2-cervical spondylosis with cervical facet arthropathy. 3-left shoulder arthralgia. status post diagnostic medial branch block cervical area at C3, C4, C5, bilaterallyx2 , he had 70-80% proximal movement of her neck pain after each block ,she would be good candidate to have RFA. - PQRS measures = - Patient's medications are documented in the chart. -Tobacco use is negative and counseling.Given. -Patient's has not received pneumococcal vaccine. -Advanced care planning discussed, patient not eligible. -Opiate contract not signed. -Pain positive and follow-up visit/procedure is scheduled. -Patient's blood pressure measured [ 123/64 ] , and documented in the record ,and patient will follow up with the primary care. -Patient's weight was measured and body mass index [ 35 ] above the normal limits and counseling was done. and patient instructed to follow-up with the primary care physician. -Patient was not identified as an unhealthy alcohol user
== END ==
LOC: PNWHC3 12:36
PROVIDERS: ATTEND Anesthesiology
DX: M50.30 Other cervical disc degeneration, unspecified cervical region (principal); M47.812 Spondylosis without myelopathy or radiculopathy, cervical region
CPT/HCPCS: 99211

== ENCOUNTER → 2021-06-29 | Outpatient (CLI) | payer BC ==
[2021-06-29 11:53] LABS: African American GFR (CKD) >90 (>60 ml/min/1.73 sqM); Blood Urea Nitrogen 17 mg/dL (7-17); Non-African American GFR(CKD) >90 (>60 ml/min/1.73 sqM)
--- NOTE | 2021-06-29 15:24 | CT ---
EXAMINATION TYPE: CT abdomen pelvis w con DATE OF EXAM: 06/29/2021 COMPARISON: 01/07/2018 INDICATION: Acute Pancreatitis DLP: 1911 mGycm, Automated exposure control for dose reduction was used. CONTRAST: 100 mL of Isovue 300. Study performed with Oral Contrast TECHNIQUE: Axial images were obtained from above the diaphragm to the pubic rami in the axial plane a t 5 mm thick sections. Reconstructed images are reviewed on the computer in the coronal plane. FINDINGS: Limited CT sections are obtained the lung bases. The lung bases are clear. CT ABDOMEN: Liver: Normal Spleen: Normal Pancreas: Normal. No adjacent inflammatory changes are evident. No density changes identified. Adrenal glands: The adrenal glands are normal. Gallbladder: Surgically absent Kidneys: No masses are evident. No hydronephrosis is present. No cysts are present. Delayed images were obtained through the kidneys, which remain unremarkable. Aorta: Normal Inferior vena cava: Normal. CT PELVIS: Loops of bowel within the abdomen and pelvis are normal. There are loops of bowel which are incom pletely distended or lack oral contrast limiting their evaluation. Appendix: Not visualized. No inflammatory changes or dilated tubular structures are evident. Urinary bladder: Normal. Genitourinary structures: Uterus is not identified. Adnexal regions appear clear. Osseous structures: No suspicious lytic or sclerotic lesions. IMPRESSIONS: 1. No suspicious acute changes to account for patient's symptoms 2. No suspicious changes of acute pancreatitis.
== END | disposition home or self-care (01) ==
LOC: RADCTMAIN 10:56
PROVIDERS: ATTEND Internal Medicine
DX: K85.10 Biliary acute pancreatitis without necrosis or infection (principal); M81.0 Age-related osteoporosis without current pathological fracture; E11.9 Type 2 diabetes mellitus without complications
CPT/HCPCS: 82565; 84520; 74177; 36415; Q9967 ×2

== ENCOUNTER 2021-07-21 06:39 | Day surgery (SDC) | payer BC ==
[2021-07-21] MEDS ORDERED: LACTATED RINGERS 1,000 ML IV ONE (07:05)
[2021-07-21] MEDS ORDERED: DEXAMETHASONE SOD PHOSPHATE 4 MG/ML 1 ML VIAL IVP ONE (07:06)
[2021-07-21] MEDS ORDERED: ONDANSETRON 4 MG/2 ML VIAL IVP ONE (07:06)
[2021-07-21] MEDS ORDERED: ONDANSETRON 4 MG/2 ML VIAL ONE (07:11)
[2021-07-21 07:19] LABS: Glucose,Whole Blood 132 mg/dL (75-99)
[2021-07-21 07:22] VITALS: RESP 16; TEMP 97.2
[2021-07-21] MEDS ORDERED: ROPIVACAINE 5MG/ML 20ML VIAL ONE (07:26)
[2021-07-21] MEDS ORDERED: methylPREDNISolone ACETATE 40 MG/ML 1 ML VIAL ONE (07:26)
[2021-07-21] MEDS ORDERED: fentaNYL (PF) 50 MCG/ML 2 ML AMP ONE (07:26)
[2021-07-21] MEDS ORDERED: MIDAZOLAM 2 MG/2 ML VIAL ONE (07:26)
--- NOTE | 2021-07-21 08:08 | P.PCN ---
Date of Procedure: 07/21/21 Procedure(s) Performed: PREOPERATIVE DIAGNOSIS: Cervical spondylosis with Facet Arthropathy without myelopathy. POSTOPERATIVE DIAGNOSIS: Cervical spondylosis with Facet Arthropathy without myelopathy. PROCEDURES: Radiofrequency thermocoagulation Bilateral C3, C4, C5, medial branch with Fluroscopy [place](fluoroscopy was available in etiology department ) (to denervate the facet joint at bilateral at C3- 4 , C4- 5 ) ANESTHESIA: Monitored anesthesia care as per anesthesia department EBL: Minimal PROCEDURE INDICATION: The patient with neck pain secondary to cervical arthropathy who had more than 50% relief of her pain with previous diagnostic cervical medial branch block. PROCEDURE DESCRIPTION / TECHNIQUE: The patient was seen and identified in the preoperative area. Risks, benefits, complications, and alternatives were discussed with the patient, the patient agreed to proceed with the procedure and signed the consent. IV was started. Vital signs remained stable throughout the procedure. Patient was taken to the OR and time out was completed. The patient was placed in the prone position on the procedure table. A pillow was placed under the patients chest to increase the cervical interlaminar space. The cervical area was prepped and draped in the usual sterile fashion. Critical pause was taken. Vital signs were closely monitored during the procedure. Conscious sedation was used during the procedure to decrease patients anxiety. Using cross-table lateral fluoroscopy, the centroid of the trapezoid of Right C3, C4, C5, were identified, marked, and localized with 1% lidocaine. Subsequently, a 20 [id number] radiofrequency cannula with a 10-mm active tip was advanced guided by fluoroscopy to the centroid of the trapezoid of Right C3, C4, C5, . Needle tip position was confirmed at the centroid of the trapezoids of Right C3, C4, C5, with anteroposterior fluoroscopy. Each site then underwent sensory testing at 50 Hz and 0 to 1 volt and motor testing at 2 Hz and 0 to 3 volt with local stimulation, but no radicular symptoms down the arm. Thereafter each sites underwent radiofrequency thermocoagulation at 80 degrees celsius for 90 seconds after injecting 0.5 ml of PF Ropivacaine 0.5 %. After thermocoagulation, 1 ml of the block solution containing Depo-Medrol 40 mg and 5 mL of preservative-free normal saline was injected at the Right C3, C4, C5, levels after negative aspiration of CSF and blood and with no paresthesias. Cannulas were retracted while injecting lidocaine 1% until the needle is out. Then the same exact procedure was repeated for the left side and identified the RFA of the left-sided medial branch at C3, C4 , C5 , at the end of this procedure,the Skin was cleansed and bandages were applied. COMPLICATIONS: No acute complications. DISPOSITION / PLANS: The patient was placed in a supine position and transferred to the recovery area in a stable condition for observation and was discharged from the recovery room after meeting discharge criteria. Home discharge instructions given to the patient by the staff. The patient was reexamined prior to discharge. The patient will schedule a follow up in the clinic in 2-4 weeks.
[2021-07-21] MEDS ORDERED: IV FLUID CONTINUATION 600 ML IV ONE (08:15)
--- NOTE | 2021-07-21 08:15 | FL ---
EXAMINATION TYPE: FL guided pain mgmt statistic DATE OF EXAM: 07/21/2021 CLINICAL HISTORY: Neck pain. TECHNIQUE: Fluoroscopy. COMPARISON: None. FINDINGS: Fluoroscopic guidance was provided during pain relief procedure performed by Dr. Herbert . A total of 17 seconds of fluoroscopic time was utilized during the procedure and 6 spot images are acquired. Images acquired shows needle localization at several levels in the cervical spine. IMPRESSION: As Above.
[2021-07-21 08:42] VITALS: BP 103/51; PULSE 70
== END 2021-07-21 08:45 ==
LOC: ORPAIN 06:39
PROVIDERS: ATTEND Specialist
DX: M47.812 Spondylosis without myelopathy or radiculopathy, cervical region (principal)
CPT/HCPCS: 64633; 64634 ×2; J2250; J1030; J1100; J2405; J3010; J2795

== ENCOUNTER → 2021-09-20 | Outpatient (CLI) | payer BC, MEDICARE ==
--- NOTE | 2021-09-20 10:12 | XR ---
EXAMINATION TYPE: XR chest 2V DATE OF EXAM: 09/20/2021 COMPARISON: NONE HISTORY: Chest pain TECHNIQUE: Frontal and lateral views of the chest are obtained. FINDINGS: There is no focal air space opacity. No evidence for pneumothorax. No pleural effusion. The cardiac silhouette size is within normal limits. The osseous structures are grossly intact. IMPRESSION: 1. No acute cardiopulmonary process.
== END | disposition home or self-care (01) ==
LOC: RADXRMAIN 09:52
PROVIDERS: ATTEND Internal Medicine
DX: R07.9 Chest pain, unspecified (principal)
CPT/HCPCS: 71046

== ENCOUNTER → 2021-09-20 | Outpatient (CLI) | payer BC, MEDICARE ==
[2021-09-20 09:21] VITALS: BP 116/61; PULSE 83; RESP 18
--- NOTE | 2021-09-20 09:50 | P.PN ---
Subjective Progress Note Date: 09/20/21 This is a follow visit for this 51 years old female with a history of severe neck pain with radiation to the left shoulder area, she is diagnosed with cervical degenerative disc disease and cervical spondylosis, and left shoulder arthralgia and myofascial pain syndrome, recently we have done RFA cervical medial branch C3 C4 C5 bilaterally , she reported that she had more than 70-80% improvement of her neck pain ,currently she is complaining of severe neck pain mostly with neck movement, she denies any motor or sensory deficit, she denies any change in the bowel movement or urination Physical Examinations : -Constitutiona : Cooperative , not in acute distress . -HEENT : nech : supple , no Lymphadenopathy , normal thyroid size . : eyes : no ptosis , no icterus, no photophobia . - neurologic : Cranial nerve II to XII intact , no focal neurological deffecit . -psychatric : alert , oriented X 3 , appropriate affect , intact judgment and insight . -Lymphatic : no Lymphadenopathy . - musculoskeltal : Cervical Spine motor stregnth in the deltoid and biceps, normal right side , normal Left side motor stregnth biceps and the wrist extensors normal right side ,normal left side . motor stregnth in the triceps muscle . normal Right side , normal Left side deep tendon reflexes normal at the biceps , normal at Brachioradialis , normal at tri Spurling test= positive Right , positive left. Neck distraction test= positive Right , positive left. Ashley sign= positive right, positive left . Multiple trigger points in the cervical paraspinal muscles Shoulder exam= decrease abduction and abduction, and left rotation of the left shoulder Lumber spine moter stegnth lower extremities ,thigh and legs 5/5 Right side , 5/5 Left side MRI of the cervical spine multilevel cervical degenerative disc disease and multilevel cervical spondylosis Assessment and Plan Plan: Assessment and plan=1-cervical degenerative disc disease. 2-cervical spondylosis with cervical facet arthropathy. 3-left shoulder arthralgia. 4-facet pain syndrome cervical paraspinal muscles status post RFA medial branch block cervical area at C3, C4, C5, bilaterally , he had 70-80% pain improvement Continue most of the pain is secondary to myofascial component and she could benefit from muscle relaxant Zanaflex 4 mg daily at bedtime, if she continued to have muscle spasm, the future she could benefit from trigger point injections and cervical paraspinal muscles. - PQRS measures = - Patient's medications are documented in the chart. -Tobacco use is negative and counseling.Given. -Patient's has not received pneumococcal vaccine. -Advanced care planning discussed, patient not eligible. -Opiate contract not signed. -Pain positive and follow-up visit/procedure is scheduled. -Patient's blood pressure measured [ 116/61 ] , and documented in the record ,and patient will follow up with the primary care. -Patient's weight was measured and body mass index [ 35 ] above the normal limits and counseling was done. and patient instructed to follow-up with the primary care physician. -Patient was not identified as an unhealthy alcohol user Objective - Vital Signs Vital signs: Vital Signs Temp Pulse 83 09/20/21 09:12 Resp 18 09/20/21 09:12 BP 116/61 09/20/21 09:12 Pulse Ox 95 09/20/21 09:12 Intake & Output 09/19/21 09/20/21 09/20/21 18:59 06:59 18:59 Weight 102.058 kg
== END ==
LOC: PNWHC3 08:58
PROVIDERS: ATTEND Specialist
DX: M50.30 Other cervical disc degeneration, unspecified cervical region (principal); M47.812 Spondylosis without myelopathy or radiculopathy, cervical region; M47.892 Other spondylosis, cervical region
CPT/HCPCS: 99211

== ENCOUNTER → 2021-11-10 | Outpatient (CLI) | payer BC, MEDICARE ==
[2021-11-10 15:55] LABS: HCT 45.2 % (34.0-46.0); HGB 14.8 gm/dL (11.4-16.0); MCH 30.2 pg (25.0-35.0); MCHC 32.7 g/dL (31.0-37.0); MCV 92.4 fL (80.0-100.0); Mean Platelet Volume 7.8; Platelet Count 259 k/uL (150-450); RBC 4.89 m/uL (3.80-5.40); RDW 13.9 % (11.5-15.5); WBC 9.1 k/uL (3.8-10.6)
[2021-11-10 16:03] LABS: African American GFR (CKD) >90 (>60 ml/min/1.73 sqM); Anion Gap 10 mmol/L; Blood Urea Nitrogen 20 mg/dL (7-17); Carbon Dioxide 25 mmol/L (22-30); Chloride 105 mmol/L (98-107); Non-African American GFR(CKD) >90 (>60 ml/min/1.73 sqM); Potassium 4.3 mmol/L (3.5-5.1); Sodium 140 mmol/L (137-145)
== END | disposition home or self-care (01) ==
LOC: LABPAT 15:10
PROVIDERS: ATTEND Internal Medicine Interventional Cardiology
DX: Z01.812 Encounter for preprocedural laboratory examination (principal); R07.9 Chest pain, unspecified
CPT/HCPCS: 36415; 80051; 82565; 84520; 85027

== ENCOUNTER 2021-11-14 07:39 | Day surgery (SDC) | payer BC, MEDICARE ==
[2021-11-13 08:41] VITALS: BMI 34.0
[~2021-11-14 07:39] MED LIST changes: +ALPRAZolam 0.25 MG TAB PO PRN; +ALPRAZolam 0.5 MG TAB PO PRN; +ASPIRIN 325 MG TAB PO STA; +ATORVASTATIN 80 MG TAB PO STA; +HEPARIN SODIUM,PORCINE 10,000 UNIT in SODIUM CHLORIDE 0.9% 1,000 ML IRRIGATION PRN; +HEPARIN SODIUM,PORCINE 2,500 UNIT in SODIUM CHLORIDE 0.9% 250 ML IRRIGATION PRN; -LACTATED RINGERS 1,000 ML IV SCH; +NITROGLYCERIN SL TABS 0.4 MG TAB SUBLINGUAL PRN; +SODIUM CHLORIDE 0.9% 1,000 ML in EMPTY BAG 1 BAG IV SCH
[2021-11-14 08:35] VITALS: TEMP 98.4
[2021-11-14 08:36] LABS: Glucose,Whole Blood 105 mg/dL (75-99)
[2021-11-14] MEDS ORDERED: ONDANSETRON 4 MG/2 ML VIAL ONE ×2 (09:09→12:14)
[2021-11-14] MEDS ORDERED: ONDANSETRON 4 MG/2 ML VIAL IVP ONE (09:14)
[2021-11-14] MEDS ORDERED: VERAPAMIL 2.5 MG/ML 2 ML AMP ONE (09:15)
[2021-11-14] MEDS ORDERED: LIDOCAINE 1% INJ 10MG/ML (20 ML MDV) ONE (09:15)
[2021-11-14] MEDS ORDERED: fentaNYL (PF) 50 MCG/ML 5 ML AMP IVP ONE (09:34)
[2021-11-14] MEDS ORDERED: MIDAZOLAM 2 MG/2 ML VIAL IVP ONE (09:37)
[2021-11-14] MEDS ORDERED: LIDOCAINE 1% INJ 10MG/ML (20 ML MDV) SQ ONE (09:37)
[2021-11-14] MEDS ORDERED: VERAPAMIL SYRINGE (5 MG/10 ML) INTRAARTER ONE (09:38)
[2021-11-14] MEDS ORDERED: HEPARIN SODIUM 1,000 UN/ML (10ML VL) ONE (09:40)
[2021-11-14] MEDS ORDERED: HEPARIN SODIUM 1,000 UN/ML (10ML VL) IVP ONE (09:47)
[2021-11-14] MEDS ORDERED: IOPAMIDOL-370 125ML BTL INJ ONE (09:51)
[2021-11-14] MEDS ORDERED: RX INFO: IV CONTRAST WAS GIVEN 1 EACH MISC MISCELLANE PRN (10:02)
[2021-11-14] MEDS ORDERED: SODIUM CHLORIDE 0.9% 1,000 ML IV SCH (10:15)
[2021-11-14 13:21] VITALS: BP 105/75; PULSE 75; RESP 16
--- NOTE | 2021-11-14 15:28 | CC ---
CARDIAC CATHETERIZATION REPORT HISTORY: Norma Lange is a 51-year-old female with known history of diabetes, hyperlipidemia, family history of premature coronary disease who recently has been complaining of exertional chest discomfort and dyspnea on exertion. In addition to palpation and in view of her recent onset of symptoms, recommendation made regarding cardiac catheterization. The procedure as well as the risks and the complications were discussed with the patient who is in full understanding and agreement. PROCEDURE DESCRIPTION: Patient was brought [facility] in a fasting semi-sedated state after receiving fentanyl and Benadryl and achieving moderate conscious sedated state. Using Xylocaine anesthesia and Seldinger technique, a 6-Italian sheath was introduced in the right radial artery. Selective right and left coronary angiography performed using 5-Italian, 3.5 bend, right and left Judkin's catheters. Multiple views of the coronary arteries including MX is obtained. Following that, a 5-Italian tight pigtail catheter was introduced into the left ventricle and left ventricular end-diastolic pressure was calculated. Following that, catheter and sheath were removed. Hemostasis was obtained with deployment of TR band. There was no immediate complication. Patient was returned to her room in stable condition. Of note, the patient received 5000 units of intravenous heparin as well as intra-arterial verapamil. FINDINGS: LEFT MAIN: This is a large-sized vessel bifurcating into left circumflex, left anterior descending artery. Left main artery has no evidence of high-grade stenosis. LEFT ANTERIOR DESCENDING ARTERY is a large-sized vessel reaching to the apex with a wraparound apex segment giving rise to a large diagonal branch proximally. The left anterior descending artery as well as branches have no evidence of obstructive coronary artery disease. LEFT CIRCUMFLEX: This is a codominant large size vessel giving rise to one obtuse marginal branch and distally bifurcating into PDA and posterolateral segment and branches. The left circumflex as well as branches have no evidence of obstructive coronary artery disease. RIGHT CORONARY ARTERY: This is a small codominant vessel giving rise to a PDA. The right coronary artery as well as branches have no evidence of obstructive coronary artery disease. LEFT VENTRICULOGRAM: Left ventriculogram was not performed. HEMODYNAMICS: There was no gradient across the aortic valve. The left ventricular end-diastolic pressure was 20-25 mmHg. CONCLUSION: 1. Normal coronary arteries. 2. Codominant system. RECOMMENDATIONS: In view of findings and anatomy, I recommend continued medical therapy with aggressive coronary risk factor modifications that have been initiated. Those findings and recommendations were discussed with the patient and her family, who are in full understanding and agreement. Duration of sedation is 13 minutes. NYA / SAULN: [id number] /
--- NOTE | 2021-11-14 15:31 | LTR ---
DATE OF SERVICE: 11/14/[address] Ortega: I had the pleasure of performing cardiac catheterization on Mrs. Lange at [facility] on November 14 and a full copy of procedure note will be forwarded to you. In brief, she was found to have no evidence of obstructive coronary artery disease. Based on those findings I recommend continue medical therapy and she will undergo further evaluation in regard to her arrhythmias. I will keep you updated on her progress. Thank you again for allowing me to participate in her care. Please feel free to call for any questions. Sincerely yours, MMROSALIOL / IJN: [id number] /
[2021-11-14] MEDS ORDERED: ATORVASTATIN 20 MG TAB PO SCH (21:00)
[2021-11-14] MEDS ORDERED: FAMOTIDINE 20 MG TAB PO SCH (21:00)
[2021-11-15] MEDS ORDERED: PANTOPRAZOLE 40 MG TABLET PO SCH (07:30)
[2021-11-15] MEDS ORDERED: ASPIRIN 81 MG PO SCH (09:00)
[2021-11-19] MEDS ORDERED: SEMAGLUTIDE 0.25 MG/0.2 ML SQ SCH (09:00)
== END 2021-11-14 13:42 | disposition home or self-care (01) ==
LOC: CATHCVL 07:39
PROVIDERS: ATTEND Internal Medicine Interventional Cardiology
DX: I20.0 Unstable angina (principal); R00.2 Palpitations; E78.2 Mixed hyperlipidemia; E78.00 Pure hypercholesterolemia, unspecified; E11.9 Type 2 diabetes mellitus without complications; Z82.49 Family history of ischemic heart disease and other diseases of the circulatory system; Z20.822 Contact with and (suspected) exposure to COVID-19; E78.5 Hyperlipidemia, unspecified; Z90.710 Acquired absence of both cervix and uterus; Z90.49 Acquired absence of other specified parts of digestive tract; Z96.659 Presence of unspecified artificial knee joint; Z87.891 Personal history of nicotine dependence; Z79.1 Long term (current) use of non-steroidal anti-inflammatories (NSAID); Z79.82 Long term (current) use of aspirin; Z79.899 Other long term (current) drug therapy
CPT/HCPCS: 93458; 87635; C1894; C1769; J2250; J2405; J2001; J3010; J1644; Q9967

== ENCOUNTER → 2021-11-23 | Outpatient (CLI) | payer BC, MEDICARE ==
--- NOTE | 2021-11-23 14:45 | P.PN ---
Subjective Progress Note Date: 11/23/21 This is a follow visit for this 51 years old female with a history of severe neck pain , she is diagnosed with cervical degenerative disc disease and cervical spondylosis, and left shoulder arthralgia and myofascial pain syndrome, recently we have done RFA cervical medial branch C3 C4 C5 bilaterally , she reported that she had more than 70-80% improvement of her neck pain ,currently she is complaining of severe neck pain mostly with neck movement, she denies any motor or sensory deficit, she denies any change in the bowel movement or urination, patient was started on muscle relaxant Zanaflex and she reported that, she had no effect from it and she had side effects, she was very sleepy when she took it, need to have severe muscle spasm in the neck Physical Examinations : -Constitutiona : Cooperative , not in acute distress . -HEENT : nech : supple , no Lymphadenopathy , normal thyroid size . : eyes : no ptosis , no icterus, no photophobia . - neurologic : Cranial nerve II to XII intact , no focal neurological deffecit . -psychatric : alert , oriented X 3 , appropriate affect , intact judgment and insight . -Lymphatic : no Lymphadenopathy . - musculoskeltal : Cervical Spine motor stregnth in the deltoid and biceps, normal right side , normal Left side motor stregnth biceps and the wrist extensors normal right side ,normal left side . motor stregnth in the triceps muscle . normal Right side , normal Left side deep tendon reflexes normal at the biceps , normal at Brachioradialis , normal at tri Spurling test= positive Right , positive left. Neck distraction test= positive Right , positive left. Ashley sign= positive right, positive left . Multiple trigger points in the cervical paraspinal muscles Shoulder exam= decrease abduction and abduction, and left rotation of the left shoulder Lumber spine moter stegnth lower extremities ,thigh and legs 5/5 Right side , 5/5 Left side MRI of the cervical spine multilevel cervical degenerative disc disease and multilevel cervical spondylosis Assessment and plan=1-cervical degenerative disc disease. 2-cervical spondylosis with cervical facet arthropathy. 3-left shoulder arthralgia. 4-facet pain syndrome cervical paraspinal muscles status post RFA medial branch block cervical area at C3, C4, C5, bilaterally , he had 70-80% pain improvement Continue most of the pain is secondary to myofascial component, patient could benefit from baclofen 5 mg 3 times a day when necessary (Side effects from Flexeril and Zanaflex ), and given prescription for myofascial release/massage therapy for the cervical area she could benefit from trigger point injections and cervical paraspinal muscles. - PQRS measures = - Patient's medications are documented in the chart. -Tobacco use is negative and counseling.Given. -Patient's has not received pneumococcal vaccine. -Advanced care planning discussed, patient not eligible. -Opiate contract not signed. -Pain positive and follow-up visit/procedure is scheduled. -Patient's blood pressure measured [ 124/79] , and documented in the record ,and patient will follow up with the primary care. -Patient's weight was measured and body mass index [ 35 ] above the normal limits and counseling was done. and patient instructed to follow-up with the primary care physician. -Patient was not identified as an unhealthy alcohol user
[2021-11-23 15:16] VITALS: BP 127/80; RESP 18; TEMP 98.3
== END ==
LOC: PNWHC3 12:58
PROVIDERS: ATTEND Specialist
DX: M47.812 Spondylosis without myelopathy or radiculopathy, cervical region (principal); M50.30 Other cervical disc degeneration, unspecified cervical region; M25.512 Pain in left shoulder; M53.82 Other specified dorsopathies, cervical region; Z91.048 Other nonmedicinal substance allergy status; Z88.5 Allergy status to narcotic agent
CPT/HCPCS: 99211

== ENCOUNTER → 2021-12-27 | Outpatient (CLI) | payer BC, MEDICARE ==
[2021-12-27 18:25] LABS: Blood Urea Nitrogen 22.8 mg/dL (9.0-27.0); Calcium 9.4 mg/dL (8.7-10.3); Carbon Dioxide 22.5 mmol/L (20.0-27.5); Chloride 104 mmol/L (96-109); Non-African American GFR(CKD) 73.3 (60.0-200.0); Potassium 4.6 mmol/L (3.5-5.5); Sodium 139 mmol/L (135-145); Total Protein 7.3 g/dL (6.2-8.2)
[2021-12-27 18:31] LABS: Basophils # (A) 0.05 X 10*3/uL (0.00-0.10); Basophils % (A) 0.6 %; Eosinophils # (A) 0.07 X 10*3/uL (0.04-0.35); Eosinophils % (A) 0.8 %; HCT 41.6 % (37.2-46.3); HGB 13.1 g/dL (12.0-15.0); Lymphocytes # (A) 2.16 X 10*3/uL (0.90-5.00); Lymphocytes % (A) 24.1 %; MCH 29.9 pg (27.0-32.0); MCHC 31.5 g/dL (32.0-37.0); Monocytes # (A) 0.26 X 10*3/uL (0.20-1.00); Monocytes % (A) 2.9 %; Neutrophils # (A) 6.37 X 10*3/uL (1.80-7.70); Neutrophils % (A) 71.2 %; Platelet Count 251 X 10*3/uL (140-440); RBC 4.38 X 10*6/uL (4.10-5.20); RDW 13.5 % (11.5-14.5); WBC 8.95 X 10*3/uL (4.50-10.00)
[2021-12-27 19:24] LABS: Erythrocyte Sedimentation Rate 29 mm/Hr (0-30)
[2021-12-27 19:43] LABS: ALT 12 U/L (8-44); AST 29 U/L (13-35); Albumin 4.4 g/dL (3.8-4.9); Bilirubin, Conjugated <0.20 mg/dL (0.20-0.40)
[2021-12-27 22:20] LABS: Alkaline Phosphatase 100 U/L (41-126)
[2021-12-27 22:29] LABS: C Reactive Protein <0.30 mg/dL (0.00-0.80)
== END | disposition home or self-care (01) ==
LOC: LABWHC1 13:23 → EDSTATUS 13:52
PROVIDERS: ATTEND Internal Medicine Rheumatology
DX: Z79.899 Other long term (current) drug therapy (principal); M06.09 Rheumatoid arthritis without rheumatoid factor, multiple sites
CPT/HCPCS: 36415; 80051; 82040; 82247; 82310; 82565; 84075; 84155; 84450; 84460; 84520; 85025; 85652; 86140; 86480

== ENCOUNTER 2021-12-28 13:21 | Day surgery (SDC) | payer BC, MEDICARE ==
[2021-12-26 15:46] VITALS: BMI 34.0
[~2021-12-28 13:21] MED LIST changes: -ALPRAZolam 0.25 MG TAB PO PRN; -ALPRAZolam 0.5 MG TAB PO PRN; -ASPIRIN 325 MG TAB PO STA; -ATORVASTATIN 80 MG TAB PO STA; -HEPARIN SODIUM,PORCINE 10,000 UNIT in SODIUM CHLORIDE 0.9% 1,000 ML IRRIGATION PRN; -HEPARIN SODIUM,PORCINE 2,500 UNIT in SODIUM CHLORIDE 0.9% 250 ML IRRIGATION PRN; +LACTATED RINGERS 1,000 ML IV SCH; -NITROGLYCERIN SL TABS 0.4 MG TAB SUBLINGUAL PRN; -SODIUM CHLORIDE 0.9% 1,000 ML in EMPTY BAG 1 BAG IV SCH
[2021-12-28] MEDS ORDERED: ONDANSETRON 4 MG/2 ML VIAL ONE (14:11)
[2021-12-28 14:12] VITALS: TEMP 97.8
[2021-12-28] MEDS ORDERED: ONDANSETRON 4 MG/2 ML VIAL IVP ONE (14:14)
[2021-12-28] MEDS ORDERED: ROPIVACAINE 5MG/ML 20ML VIAL ONE (14:15)
[2021-12-28] MEDS ORDERED: methylPREDNISolone ACETATE 40 MG/ML 1 ML VIAL ONE (14:15)
[2021-12-28] MEDS ORDERED: fentaNYL (PF) 50 MCG/ML 2 ML AMP ONE (14:15)
[2021-12-28] MEDS ORDERED: MIDAZOLAM 2 MG/2 ML VIAL ONE (14:15)
[2021-12-28 14:16] LABS: Glucose,Whole Blood 82 mg/dL (75-99)
[2021-12-28] MEDS ORDERED: IV FLUID CONTINUATION 1,000 ML IV ONE (14:33)
--- NOTE | 2021-12-28 14:34 | P.PCN ---
Date of Procedure: 12/28/21 Procedure(s) Performed: PREOPERATIVE DIAGNOSI= 1-myofascial pain syndrome and cervical and shoulder area . 2- Cervical Spondylosis with Facet Arthropathy.without myelopathy POSTOPERATIVE DIAGNOSIS: Same as preop diagnosis. PROCEDURES: Diagnostic = trigger point injection cervical paraspinal muscle and trapezius muscle (Total of 3trigger point injected on the left side cervical paraspinal muscles and left trapezius muscles ) (And 4 points right side cervical paraspinal muscles and right trapezius muscle ) ANESTHESIA: Moderate sedation with Versed 2 mg and fentanyl 50 g EBL: Minimal PROCEDURE INDICATION: The patient with neck pain secondary to myofascial pain syndrome, unresponsive to more conservative treatments. PROCEDURE DESCRIPTION / TECHNIQUE: The patient was seen and identified in the preoperative area. Risks, benefits, complications, and alternatives were discussed with the patient, the patient agreed to proceed with the procedure and signed . Vital signs remained stable throughout the procedure. Patient was taken to the OR and time out was completed. The patient was placed in the sitting position on the procedure table. The cervical area was prepped and draped in the usual sterile fashion. Critical pause was taken. Vital signs were closely monitored during the procedur. Then after that each of the trigger point injected using ropivacaine 14 ml 0.5% mixed with 40 mg of Depo-Medrol , and 2 mL of the mixture injected at each trigger point after negative aspiration, actually done using 25-gauge needle, under was no paresthesia during the injection Total of 14 ML of ropivacaine 0. 5% was used, and mixed with 40 mg of Depo- Medrol COMPLICATIONS: No acute complications. DISPOSITION / PLANS: The patient was placed in a supine position and transferred to the recovery area in a stable condition for observation and was discharged from the recovery room after meeting discharge criteria. Home discharge instructions given to the patient by the staff. The patient was reexamined prior to discharge. The patient will schedule a follow up in the clinic in 2-4 weeks.
[2021-12-28 14:37] VITALS: RESP 18
[2021-12-28 14:48] VITALS: BP 107/68; PULSE 68
== END 2021-12-28 15:03 | disposition home or self-care (01) ==
LOC: ORPAIN 13:21
PROVIDERS: ATTEND Specialist
DX: M79.18 Myalgia, other site (principal); M47.812 Spondylosis without myelopathy or radiculopathy, cervical region; Z88.5 Allergy status to narcotic agent; Z91.09 Other allergy status, other than to drugs and biological substances; Z90.710 Acquired absence of both cervix and uterus
CPT/HCPCS: 20553; J2250; J1030; J2405; J3010; J2795; 99152

== ENCOUNTER → 2022-04-02 | Outpatient (CLI) | payer BC, MEDICARE ==
[2022-04-02 14:44] LABS: African American GFR (CKD) >90 (>60 ml/min/1.73 sqM); Blood Urea Nitrogen 15 mg/dL (7-17); Non-African American GFR(CKD) 82 (>60 ml/min/1.73 sqM)
--- NOTE | 2022-04-02 15:35 | CT ---
EXAMINATION TYPE: CT soft tissue neck w con DATE OF EXAM: 04/02/2022 3:19 PM COMPARISON: 2 HISTORY: h/o left side neck lump CT DLP: 950.3 mGycm Automated exposure control for dose reduction was used. CONTRAST: CT scan of the neck is performed following with IV Contrast, patient injected with 100 mL of Isovue 3 00. Axial images are obtained, coronal and sagittal reformatted images are reviewed. FINDINGS: Adjacent to the sternocleidomastoid distal aspect there is a focus of increased attenuation within the subcutaneous fat, some local soft tissue thickening anteriorly, axial image 58 which may be postinflammatory, correlate for trauma to this region. At the level of the BB over the right base of neck there are some underlying benign-appearing lymph nodes present. There is a small in size jose uring only 5 to 6 mm. Airway: No gross abnormality seen. Parotid/submandibular glands: No gross abnormality seen. Carotid/Vascular Structures: Patent, vertebral arteries are codominant, there are 3 super aortic bran ch vessels Osseous Structures: Postop changes are noted at C5-6, C6-7, disc replacement changes are noted, there is near-anatomic alignment Other: Dental amalgam causes streak artifact over portions of the exam IMPRESSION: Benign-appearing lymph nodes at the site of patient's palpable abnormality, additional f indings above
== END | disposition home or self-care (01) ==
LOC: RADCTMAIN 14:15
PROVIDERS: ATTEND Otolaryngology
DX: R22.1 Localized swelling, mass and lump, neck (principal)
CPT/HCPCS: 82565; 84520; 70491; 36415; Q9967

== ENCOUNTER → 2022-04-09 | Outpatient (CLI) | payer BC, MEDICARE ==
[2022-04-09 18:24] LABS: Basophils # (A) 0.08 X 10*3/uL (0.00-0.10); Basophils % (A) 1.1 %; Eosinophils # (A) 0.25 X 10*3/uL (0.04-0.35); Eosinophils % (A) 3.3 %; HCT 46.3 % (37.2-46.3); HGB 14.4 g/dL (12.0-15.0); Immature Grans, Automated 0.3 %; Lymphocytes # (A) 1.84 X 10*3/uL (0.90-5.00); Lymphocytes % (A) 24.5 %; MCH 27.9 pg (27.0-32.0); MCHC 31.1 g/dL (32.0-37.0); MCV 89.6 fL (80.0-97.0); Mean Platelet Volume 11.7 fL (9.5-12.2); Monocytes # (A) 0.64 X 10*3/uL (0.20-1.00); Monocytes % (A) 8.5 %; NRBC Per 100 WBC 0 /100 WBCS (0.0-0.0); Neutrophils # (A) 4.69 X 10*3/uL (1.80-7.70); Neutrophils % (A) 62.3 %; Platelet Count 253 X 10*3/uL (140-440); RBC 5.17 X 10*6/uL (4.10-5.20); RDW 13.6 % (11.5-14.5); WBC 7.52 X 10*3/uL (4.50-10.00)
[2022-04-09 18:37] LABS: African American GFR (CKD) 91.7 (60.0-200.0); Bilirubin, Conjugated <0.20 mg/dL (0.20-0.40); Blood Urea Nitrogen 12.9 mg/dL (9.0-27.0); Calcium 9.3 mg/dL (8.7-10.3); Carbon Dioxide 23.2 mmol/L (20.0-27.5); Chloride 104 mmol/L (96-109); Non-African American GFR(CKD) 79.1 (60.0-200.0); Sodium 139 mmol/L (135-145)
[2022-04-09 18:43] LABS: C Reactive Protein <0.30 mg/dL (0.00-0.80)
[2022-04-09 19:27] LABS: Erythrocyte Sedimentation Rate 12 mm/Hr (0-30)
[2022-04-09 21:58] LABS: ALT 11 U/L (8-44); AST 23 U/L (13-35); Albumin 4.4 g/dL (3.8-4.9); Alkaline Phosphatase 101 U/L (41-126); Total Protein 7.4 g/dL (6.2-8.2)
== END | disposition home or self-care (01) ==
LOC: LABWHC1 10:40
PROVIDERS: ATTEND Internal Medicine Rheumatology
DX: M06.09 Rheumatoid arthritis without rheumatoid factor, multiple sites (principal); Z79.899 Other long term (current) drug therapy
CPT/HCPCS: 36415; 80051; 82040; 82248; 82310; 82565; 84075; 84155; 84450; 84460; 84520; 85025; 85652; 86140; 86480

== ENCOUNTER → 2022-07-09 | Outpatient (CLI) | payer BC, MEDICARE ==
[2022-07-09 10:41] VITALS: BP 120/63; PULSE 81; RESP 18; TEMP 98
--- NOTE | 2022-07-09 14:19 | P.PAINPG ---
PQRS Measure Charge Sheet Comment: A 52 yr old female with a history of severe and chronic neck pain secondary to degenerative disc diseases and spondylosis with facet arthropathy presents today for evaluation s/p TPIs. Pt states she experienced 20% pain relief x 2-3 weeks s/p procedure. Pain level is currently at 6/10 in intensity, constant , localized on R cervical spine, burning/throbbing in character w shooting numbness towards BL hands. Pain is provoked by rotation & hyperextension. Pain is alleviated with heat, ice, medications (Robaxin), PT which she is currently in, home stretching regimen, massage therapy semi monthly, repositioning and rest. Interventional pain procedures completed include TPIs, BL C3-C4, C4-C5 RFA. Patient is currently on Robaxin Patient denies any side effects of the medication(s), denies excessive drowsiness or sleepiness, denies suicidal ideation and reports that the current pain medication is helping to control the pain and improve activities of daily living. Patient denies any motor or sensory deficits. Patient denies any fever or night sweats, denies any change in the bowel movements or urination. Physical Examination: -Constitutional: Cooperative. Not in acute distress . - Neurologic: Cranial nerve II to XII intact. No focal neurological deficits. - Psychatric: Alert & oriented x 3. Matching mood & appropriate affect. Judgment and insight intact. - Musculoskeletal: Cervical spine: Muscle bulk/ tone/ strength in the bilateral upper extremities normal Vertebral body tenderness to palpation over Spurling test positive Distraction test positive Facet loading test positive over R C4-C5, C5-C6 w accompanying paraspinal TTP Thoracic spine Muscle bulk / tone/ strength in the bilateral paraspinal muscles normal Vertebral body tender to palpation over Facet loading test positive Lumbar spine: Motor bulk/ tone/ strength lower extremities , thigh and legs : 5/5 Deep tendon reflexes : Normal Knee Jerk. Normal Ankle Jerk . Vertebral body tenderness to palpation over Lumbar Facet Loading Test positive Straight Leg Raise: positive at 30 degrees right side/ left side Gaenslen's Test positive Sacral spine : Severe tenderness over the Sacroiliac joint: right side / left side Range of motion: Flexion of the lumbar spine <60 degrees Range of motion: Extension of the lumbar spine <20 degrees Gaenslen's Test positive Victor Manuel's Test positive Gina test: positive right side / left side Thigh Thrust Test Sacral Thrust Test Imaging: MRI without contrast of the cervical spine from 01/01/22 reviewed Assessment and plan: Chronic neck pain secondary to degenerative disc disease , spondylosis with facet arthropathy without myelopathy Recommendation of R RFA C4-C5, C5-C6. Pt exhibited optimal pain relief w prior procedure in 2020. Risks, benefits of procedure discussed and pt verbalized understanding. Denies anticoagulant use or medical history of diabetes. All patient questions answered MAPS reviewed and it was appropriate. I have spent less than 30 minutes on patient care today. Dr Herbert was available by phone for the evaluation of this patient. The time was used to review the medical records including relevant urine studies and Prescription history (MAPs), review of the available imaging, evaluation and examination of the patient, coordination of care with the medical staff and if applicable referring physicians, as well as creation of the medical record PQRS Narrative: Smoking Status Never smoker Home Medications: Ambulatory Orders Atorvastatin Calcium [Lipitor] 20 mg PO HS 09/14/20 FLUoxetine HCL [PROzac] 40 mg PO DAILY 09/14/20 Meloxicam [Mobic] 15 mg PO DAILY 09/14/20 Omeprazole [PriLOSEC] 20 mg PO DAILY 09/14/20 lisinopriL [Zestril] 2.5 mg PO HS 09/14/20 Semaglutide [Ozempic] 0.25 mg SQ WE 07/21/21 Famotidine [Zantac-360 (Famotidine)] 20 mg PO HS 11/13/21 Diclofenac Sodium Gel [Voltaren Gel] 2 gm TOPICAL QID PRN 12/26/21 Controlled Substance Measures - Controlled Substance Measures Is patient prescribed a controlled substance at discharge?: No
== END ==
LOC: PNWHC3 10:19
PROVIDERS: ATTEND Specialist
DX: M50.30 Other cervical disc degeneration, unspecified cervical region (principal); M47.812 Spondylosis without myelopathy or radiculopathy, cervical region; G89.29 Other chronic pain; Z91.048 Other nonmedicinal substance allergy status; Z88.5 Allergy status to narcotic agent
CPT/HCPCS: 99211

== ENCOUNTER → 2022-07-30 | Outpatient (CLI) | payer BC, MEDICARE ==
[2022-07-30 18:50] LABS: ALT 12 U/L (8-44); AST 29 U/L (13-35)
[2022-07-31 01:22] LABS: Basophils % (A) 1.1 %; Eosinophils # (A) 0.19 X 10*3/uL (0.04-0.35); Eosinophils % (A) 2.5 %; HCT 45.3 % (37.2-46.3); HGB 14.5 g/dL (12.0-15.0); Lymphocytes # (A) 2.12 X 10*3/uL (0.90-5.00); Lymphocytes % (A) 27.9 %; MCH 28.3 pg (27.0-32.0); MCV 88.5 fL (80.0-97.0); Mean Platelet Volume 11.2 fL (9.5-12.2); Monocytes % (A) 10.5 %; Neutrophils # (A) 4.39 X 10*3/uL (1.80-7.70); Neutrophils % (A) 57.7 %; Platelet Count 265 X 10*3/uL (140-440); RBC 5.12 X 10*6/uL (4.10-5.20)
[2022-07-31 01:23] LABS: Basophils # (A) 0.08 X 10*3/uL (0.00-0.10); Immature Grans, Automated 0.3 %; NRBC Per 100 WBC 0 /100 WBCS (0.0-0.0)
[2022-07-31 01:42] LABS: Erythrocyte Sedimentation Rate 15 mm/Hr (0-30)
[2022-07-31 02:19] LABS: African American GFR (CKD) 80.7 (60.0-200.0); Albumin 4.6 g/dL (3.8-4.9); Alkaline Phosphatase 90 U/L (41-126); Bilirubin, Conjugated <0.20 mg/dL (0.20-0.40); Blood Urea Nitrogen 15.9 mg/dL (9.0-27.0); C Reactive Protein <0.30 mg/dL (0.00-0.80); Calcium 10.1 mg/dL (8.7-10.3); Carbon Dioxide 21.6 mmol/L (20.0-27.5); Chloride 105 mmol/L (96-109); Non-African American GFR(CKD) 69.6 (60.0-200.0); Potassium 4.2 mmol/L (3.5-5.5); Sodium 143 mmol/L (135-145); Total Protein 6.9 g/dL (6.2-8.2)
== END | disposition home or self-care (01) ==
LOC: LABWHC1 11:10
PROVIDERS: ATTEND Podiatrist Foot & Ankle Surgery
DX: Z79.899 Other long term (current) drug therapy (principal)
CPT/HCPCS: 36415; 80051; 82040; 82248; 82310; 82565; 84075; 84155; 84450; 84460; 84520; 85025; 85652; 86140

== ENCOUNTER 2022-08-31 06:21 | Day surgery (SDC) | payer BC, MEDICARE ==
[2022-08-30 08:57] VITALS: BMI 31.7
[2022-08-31] MEDS ORDERED: ONDANSETRON 4 MG/2 ML VIAL ONE (06:47)
[2022-08-31 06:52] VITALS: TEMP 98
[2022-08-31] MEDS ORDERED: LACTATED RINGERS 1,000 ML IV ONE (06:53)
[2022-08-31] MEDS ORDERED: ONDANSETRON 4 MG/2 ML VIAL IVP ONE (06:53)
[2022-08-31] MEDS ORDERED: LIDOCAINE 1% (10MG/ML) FOR IV START INTRADERMA PRN (06:55)
[2022-08-31] MEDS ORDERED: LACTATED RINGERS 1,000 ML IV SCH (06:55)
[2022-08-31] MEDS ORDERED: methylPREDNISolone ACETATE 40 MG/ML 1 ML VIAL ONE (06:57)
[2022-08-31] MEDS ORDERED: ROPIVACAINE 5 MG/ML 20 ML AMPULE ONE (06:57)
[2022-08-31] MEDS ORDERED: MIDAZOLAM 2 MG/2 ML VIAL ONE (06:57)
[2022-08-31 07:02] LABS: Glucose,Whole Blood 106 mg/dL (70-110)
--- NOTE | 2022-08-31 07:22 | P.PCN ---
Date of Procedure: 08/31/22 Procedure(s) Performed: PREOPERATIVE DIAGNOSIS: Cervical spondylosis with Facet Arthropathy without myelopathy. POSTOPERATIVE DIAGNOSIS: Cervical spondylosis with Facet Arthropathy without myelopathy. PROCEDURES: Radiofrequency thermocoagulation Right C3, C4, C5, medial branch with Fluroscopy [place]idence(fluoroscopy was available in etiology department ) (to denervate the facet joint Right at C3- 4 , C4- 5 ) ANESTHESIA: Monitored anesthesia care as per anesthesia department EBL: Minimal PROCEDURE INDICATION: The patient with neck pain secondary to cervical arthropathy who had more than 50% relief of her pain with previous diagnostic cervical medial branch block. PROCEDURE DESCRIPTION / TECHNIQUE: The patient was seen and identified in the preoperative area. Risks, benefits, complications, and alternatives were discussed with the patient, the patient agreed to proceed with the procedure and signed the consent. IV was started. Vital signs remained stable throughout the procedure. Patient was taken to the OR and time out was completed. The patient was placed in the lateral position( right side up ) on the procedure table. The cervical area was prepped and draped in the usual sterile fashion. Critical pause was taken. Vital signs were closely monitored during the procedure. Conscious sedation was used during the procedure to decrease patients anxiety. Using cross-table lateral fluoroscopy, the centroid of the trapezoid of Right C3, C4, C5, were identified, marked, and localized with 1% lidocaine. Subsequently, a 20 [id number] radiofrequency cannula with a 10-mm active tip was advanced guided by fluoroscopy to the centroid of the trapezoid of Right C3, C4, C5, . Needle tip position was confirmed at the centroid of the trapezoids of Right C3, C4, C5, with anteroposterior fluoroscopy. Each site then underwent sensory testing at 50 Hz and 0 to 1 volt and motor testing at 2 Hz and 0 to 3 volt with local stimulation, but no radicular symptoms down the arm. Thereafter each sites underwent radiofrequency thermocoagulation at 80 degrees celsius for 90 seconds after injecting 0.5 ml of PF Ropivacaine 0.5 %. After thermocoagulation, 1 ml of the block solution containing Depo-Medrol 40 mg and 3 mL of preservative-free normal saline was injected at the Right C3, C4, C5, levels after negative aspiration of CSF and blood and with no paresthesias. Cannulas were retracted while injecting lidocaine 1% until the needle is out , at the end of this procedure,the Skin was cleansed and bandages were applied. COMPLICATIONS: No acute complications. DISPOSITION / PLANS: The patient was placed in a supine position and transferred to the recovery area in a stable condition for observation and was discharged from the recovery room after meeting discharge criteria. Home discharge instructions given to the patient by the staff. The patient was reexamined prior to discharge. The patient will schedule a follow up in the clinic in 2-4 weeks.
[2022-08-31] MEDS ORDERED: IV FLUID CONTINUATION 1,000 ML IV ONE (07:24)
[2022-08-31 07:28] VITALS: RESP 18
[2022-08-31 07:40] VITALS: BP 108/73; PULSE 88
--- NOTE | 2022-08-31 07:42 | FL ---
Fluoroscopy History: Rad freq FB cervical Rad freq FB cervical. FL TIME [address] LEE. 2 IMAGES SENT.
== END 2022-08-31 07:54 | disposition home or self-care (01) ==
LOC: ORPAIN 06:21
PROVIDERS: ATTEND Specialist
DX: M47.812 Spondylosis without myelopathy or radiculopathy, cervical region (principal); E78.5 Hyperlipidemia, unspecified; I10 Essential (primary) hypertension; E11.9 Type 2 diabetes mellitus without complications; K21.9 Gastro-esophageal reflux disease without esophagitis; Z79.890 Hormone replacement therapy; Z79.899 Other long term (current) drug therapy
CPT/HCPCS: 64633; 64634; J2250; J1030; J2405; J2795

== ENCOUNTER → 2022-09-17 | Outpatient (CLI) | payer BC, MEDICARE ==
[2022-09-17 09:15] VITALS: BP 110/59; PULSE 73; RESP 18; TEMP 97.6
--- NOTE | 2022-09-17 14:48 | P.PAINPG ---
Objective - Vital Signs Vital signs: Vital Signs Temp 97.6 F 09/17/22 09:09 Pulse 73 09/17/22 09:09 Resp 18 09/17/22 09:09 BP 110/59 09/17/22 09:09 Pulse Ox 94 L 09/17/22 09:09 FiO2 Intake & Output 09/16/22 09/17/22 09/17/22 18:59 06:59 18:59 Weight 97.522 kg PQRS Measure Charge Sheet Mode of Arrival: Ambulatory Comment: A 52 yr old female with a history of severe and chronic neck pain secondary to cervical degenerative disc diseases and spondylosis with facet arthropathy without myelopathy presents today for evaluation s/p R C3-C4. C4-C5. Pt states she experienced % pain reliref s/p procedure. Pain level is currently at 4/10 in intensity, constant, localized in R neck, dull/ achy/ sharp/ shooting towards R Trapezius. Pain is provoked 7/10 by lifting. Pain is alleviated with injections, heat, ice, medications (Motrin, Robaxin), home stretching regimen, repostioning and rest. Interventional pain procedures completed include R C4-C6 RFA, BL RFA L3-L5, CESIs, BL Cervical TPIs, Patient is currently on Motrin, Robaxin. Patient denies any side effects of the medication(s), denies excessive drowsiness or sleepiness, denies suicidal ideation and reports that the current pain medication is helping to control the pain and improve activities of daily living. Patient denies any motor or sensory deficits. Patient denies any fever or night sweats, denies any change in the bowel movements or urination. Physical Examination: -Constitutional: Cooperative. Not in acute distress . - Neurologic: Cranial nerve II to XII intact. No focal neurological deficits. - Psychatric: Alert & oriented x 3. Matching mood & appropriate affect. Judgment and insight intact. - Musculoskeletal: Cervical spine: Muscle bulk/ tone/ strength in the bilateral upper extremities normal Vertebral body tenderness to palpation over BL paraspinal TTP from C2-T1 w palpable spasms over R C4-C6 Spurling test positive Distraction test positive Facet loading test positive Thoracic spine Muscle bulk / tone/ strength in the bilateral paraspinal muscles normal Vertebral body tender to palpation over Facet loading test positive Lumbar spine: Motor bulk/ tone/ strength lower extremities , thigh and legs : 5/5 Deep tendon reflexes : Normal Knee Jerk. Normal Ankle Jerk . Vertebral body tenderness to palpation over Lumbar Facet Loading Test positive Straight Leg Raise: positive at 30 degrees right side/ left side Gaenslen's Test positive Sacral spine : Severe tenderness over the Sacroiliac joint: right side / left side Range of motion: Flexion of the lumbar spine <60 degrees Range of motion: Extension of the lumbar spine <20 degrees Gaenslen's Test positive Victor Manuel's Test positive Gina test: positive right side / left side Thigh Thrust Test Sacral Thrust Test Assessment and plan: Chronic neck pain secondary to cervical degenerative disc disease , spondylosis with facet arthropathy without myelopathy Recommendation of BL TPIs C3-C7. Risks, benefits of procedure discussed and pt verbalized understanding. Denies anticoagulant use or medical history of diabetes. All patient questions answered I have spent less than 30 minutes on patient care today. Dr Herbert was available by phone for the evaluation of this patient. The time was used to review the medical records including relevant urine studies and Prescription history (MAPs), review of the available imaging, evaluation and examination of the patient, coordination of care with the medical staff and if applicable referring physicians, as well as creation of the medical record - Pain Location Right Neck Non-Pharmacological Interventions: Heat, Home Exercise, Ice, Inactivity, Massage, Physical Therapy, Position/Reposition, Stretching Pharmacological Interventions: Block, PRN Medication, Topical Medication PQRS Narrative: Smoking Status Never smoker Blood Pressure 110/59 Pain Intensity [Right Neck] 4 Scale Used Numeric (1 - 10) Home Medications: Ambulatory Orders Atorvastatin Calcium [Lipitor] 20 mg PO HS 09/14/20 FLUoxetine HCL [PROzac] 40 mg PO DAILY 09/14/20 Omeprazole [PriLOSEC] 20 mg PO DAILY 09/14/20 lisinopriL [Zestril] 2.5 mg PO HS 09/14/20 Semaglutide [Ozempic] 0.25 mg SQ WE 07/21/21 Famotidine [Zantac-360 (Famotidine)] 20 mg PO HS 11/13/21 Controlled Substance Measures - Controlled Substance Measures Is patient prescribed a controlled substance at discharge?: No
== END | disposition home or self-care (01) ==
LOC: PNWHC3 08:56
PROVIDERS: ATTEND Specialist
DX: M47.892 Other spondylosis, cervical region (principal); M50.30 Other cervical disc degeneration, unspecified cervical region
CPT/HCPCS: 99211

== ENCOUNTER 2022-10-30 06:05 | Day surgery (SDC) | payer BC, MEDICARE ==
[2022-10-30 06:22] VITALS: RESP 16; TEMP 97
[2022-10-30] MEDS ORDERED: LIDOCAINE 1% (10MG/ML) FOR IV START INTRADERMA PRN (06:22)
[2022-10-30] MEDS ORDERED: LACTATED RINGERS 1,000 ML IV SCH (06:22)
[2022-10-30 06:48] LABS: Glucose,Whole Blood 98 mg/dL (70-110)
[2022-10-30] MEDS ORDERED: ONDANSETRON 4 MG/2 ML VIAL ONE (07:00)
[2022-10-30] MEDS ORDERED: ONDANSETRON 4 MG/2 ML VIAL IVP ONE (07:03)
[2022-10-30] MEDS ORDERED: ROPIVACAINE 5 MG/ML 20 ML AMPULE ONE (07:04)
[2022-10-30] MEDS ORDERED: MIDAZOLAM 2 MG/2 ML VIAL ONE (07:04)
[2022-10-30] MEDS ORDERED: methylPREDNISolone ACETATE 40 MG/ML 1 ML VIAL ONE (07:04)
[2022-10-30] MEDS ORDERED: IV FLUID CONTINUATION 1,000 ML IV ONE (07:16)
--- NOTE | 2022-10-30 07:18 | P.PCN ---
Date of Procedure: 10/30/22 Procedure(s) Performed: PREOPERATIVE DIAGNOSI= 1-myofascial pain syndrome and cervical and shoulder area . 2- Cervical Spondylosis with Facet Arthropathy.without myelopathy POSTOPERATIVE DIAGNOSIS: Same as preop diagnosis. PROCEDURES: Diagnostic = trigger point injection cervical paraspinal muscle and trapezius muscle (Total of 4 trigger point injected on the left side cervical paraspinal muscles and left trapezius m uscles ) (And 4 points right side cervical paraspinal muscles and right trapezius muscle ) ANESTHESIA: Moderate sedation with Versed 2 mg . Sedation start time 07:06 .end at 07:12 EBL: Minimal PROCEDURE INDICATION: The patient with neck pain secondary to myofascial pain syndrome, unresponsive to more conservative treatments. PROCEDURE DESCRIPTION / TECHNIQUE: The patient was seen and identified in the preoperative area. Risks, benefits, complications, and alternatives were discussed with the patient, the patient agreed to proceed with the procedure and signed . Vital signs remained stable throughout the procedure. Patient was taken to the OR and time out was completed. The patient was placed in the sitting position on the procedure table. The cervical area was prepped and draped in the usual sterile fashion. Critical pause was taken. Vital signs were closely monitored during the procedur. Then after that each of the trigger point injected using ropivacaine 16 ml 0.5% mixed with 40 mg of Depo-Medrol , and 2 mL of the mixture injected at each trigger point after negative aspiration, actually done using 25-gauge needle, under was no paresthesia during the injection Total of 16 ML of ropivacaine 0. 5% was used, and mixed with 40 mg of Depo- Medrol COMPLICATIONS: No acute complications. DISPOSITION / PLANS: The patient was placed in a supine position and transferred to the recovery area in a stable condition for observation and was discharged f rom the recovery room after meeting discharge criteria. Home discharge instructions given to the patient by the staff. The patient was reexamined prior to discharge. The patient will schedule a follow up in the clinic in 2-4 weeks.
[2022-10-30 07:33] VITALS: BP 109/60; PULSE 75
== END 2022-10-30 07:49 | disposition home or self-care (01) ==
LOC: ORPAIN 06:05
PROVIDERS: ATTEND Specialist
DX: M79.18 Myalgia, other site (principal); M47.812 Spondylosis without myelopathy or radiculopathy, cervical region; Z91.048 Other nonmedicinal substance allergy status
CPT/HCPCS: 20553; J2250; J1030; J2405; J2795

== ENCOUNTER → 2022-11-15 | Outpatient (CLI) | payer BC, MEDICARE ==
[2022-11-15 12:31] VITALS: BP 118/79; PULSE 78; RESP 18; TEMP 97.7
--- NOTE | 2022-11-15 14:33 | P.PAINPG ---
PQRS Measure Charge Sheet Comment: A 52 yr old female with a history of severe and chronic neck pain secondary to cervical DDD, spondylosis with facet arthropathy without myelopathy, Occipital neuralgia/ Cervicogenic RINOCN presents today for evaluation s/p BL TPIs C3-C7. Pt states she experienced 70 % pain relief x 10 d s/p procedure. Pain level is currently at 8 /10 in intensity, constant, localized in R cervical spine, sore/ throbbing in character w shooting towards the the BL scalp. Pain is provoked by hyperextension, rotation, lifting. Pain is alleviated with medications (ibuprofen), injections in the past, heat, PT integrated with massage 6 weeks in May 2022, massage semi monthly, laying supine and rest. Interventional pain procedures completed include R RFA C3-C5, CESIs Patient is currently on Ibu Patient denies any side effects of the medication(s), denies excessive drowsiness or sleepiness, denies suicidal ideation and reports that the current pain medication is helping to control the pain and improve activities of daily living. Patient denies any motor or sensory deficits. Patient denies any fever or night sweats, denies any change in the bowel movements or urination. Physical Examination: -Constitutional: Cooperative. Not in acute distress . - Neurologic: Cranial nerve II to XII intact. No focal neurological de ficits. - Psychatric: Alert & oriented x 3. Matching mood & appropriate affect. Judgment and insight intact. - Musculoskeletal: Cervical spine: +BL TTP over JOCELYNE Muscle bulk/ tone/ strength in the bilateral upper extremities normal Vertebral body tenderness to palpation over Spurling test positive Distraction test positive Facet loading test positive Thoracic spine Muscle bulk / tone/ strength in the bilateral paraspinal muscles normal Vertebral body tender to palpation over Facet loading test positive Lumbar spine: Motor bulk/ tone/ strength lower extremities , thigh and legs : 5/5 Deep tendon reflexes : Normal Knee Jerk. Normal Ankle Jerk . Vertebral body tenderness to palpation over Lumbar Facet Loading Test positive Straight Leg Raise: positive at 30 degrees right side/ left side Gaenslen's Test positive Sacral spine : Severe tenderness over the Sacroiliac joint: right side / left side Range of motion: Flexion of the lumbar spine <60 degrees Range of motion: Extension of the lumbar spine <20 degrees Gaenslen's Test positive Gina test: positive right side / left side Thigh Thrust Test Sacral Thrust Test Assessment and plan: Chronic neck pain secondary to cervical DDD, spondylosis with facet arthropathy without myelopathy, occipital neuralgia/ cervicogenic RINCON Recommendation of BL JOCELYNE injection. May need a series, up to every 2-3 mo, for optimal pain relief. Risks, benefits of procedure discussed and pt verbalized understanding. Admits to anticoagulant use or medical history of diabetes. Protocol for discontinuation/ continuation of medications jen procedure discussed. All patient questions answered I have spent less than 30 minutes on patient care today. Dr Herbert was available by phone for the evaluation of this patient. The time was used to review the medical records including relevant urine studies and Prescription history (MAPs), review of the available imaging, evaluation and examination of the patient, coordination of care with the medical staff and if applicable referring physicians, as well as creation of the medical record - Pain Location Right Neck Non-Pharmacological Interventions: Heat, Inactivity, Massage, Meditation, Physical Therapy, Position/Reposition Pharmacological Interventions: PRN Medication PQRS Narrative: Smoking Status Never smoker Home Medications: Ambulatory Orders Atorvastatin Calcium [Lipitor] 20 mg PO HS 09/14/20 FLUoxetine HCL [PROzac] 40 mg PO DAILY 09/14/20 Omeprazole [PriLOSEC] 20 mg PO DAILY 09/14/20 lisinopriL [Zestril] 2.5 mg PO HS 09/14/20 Semaglutide [Ozempic] 0.25 mg SQ WE 07/21/21 Famotidine [Zantac-360 (Famotidine)] 20 mg PO HS 11/13/21 methocarbamoL [Robaxin] 500 mg PO BID PRN 30 Days #60 tab 11/15/22 Controlled Substance Measures - Controlled Substance Measures Is patient prescribed a controlled substance at discharge?: No
== END ==
LOC: PNWHC3 12:07
PROVIDERS: ATTEND Specialist
DX: M47.812 Spondylosis without myelopathy or radiculopathy, cervical region (principal); M50.30 Other cervical disc degeneration, unspecified cervical region; E11.9 Type 2 diabetes mellitus without complications; Z79.84 Long term (current) use of oral hypoglycemic drugs; Z91.048 Other nonmedicinal substance allergy status; Z88.6 Allergy status to analgesic agent; Z88.5 Allergy status to narcotic agent
CPT/HCPCS: 99211

== ENCOUNTER → 2022-11-26 | Outpatient (CLI) | payer BC, MEDICARE ==
--- NOTE | 2022-11-27 08:35 | MM ---
Reason for Exam: Screening (asymptomatic). Last mammogram was performed 1 year(s) and 7 month(s) ago. Patient History: Menarche at age 16. First Full-Term at age 22. Left ovary removed at age 46. Hysterectomy at age 46. Risk Values: Yesi 5 year model risk: 0.9%. NCI Lifetime model risk: 7.0%. Prior Study Comparison: 02/03/2019 Bilateral MG 3D screening mammo w/cad, [facility]. 04/27/2021 Bilateral MG 3D screening mammo w/cad, [facility]. Tissue Density: The breast tissue is heterogeneously dense. This may lower the sensitivity of mammography. Findings: Analyzed By CAD. There is no suspicious group of microcalcifications or new suspicious mass in either breast. No significant change from prior exams. Overall Assessment: Benign, BI-RAD 2 Management: Screening Mammogram of both breasts in 1 year. A clinical breast exam by your physician is recommended on an annual basis and results should be correlated with mammographic findings. Electronically signed and approved by: Ian Wu D.O.
== END | disposition home or self-care (01) ==
LOC: RADMAMWWP 11:52
PROVIDERS: ATTEND Internal Medicine
DX: Z12.31 Encounter for screening mammogram for malignant neoplasm of breast (principal); Z90.721 Acquired absence of ovaries, unilateral
CPT/HCPCS: 77063; 77067

== ENCOUNTER 2022-12-20 06:12 | Day surgery (SDC) | payer BC, MEDICARE ==
[2022-12-18 14:59] VITALS: BMI 30.2
[2022-12-20] MEDS ORDERED: LACTATED RINGERS 1,000 ML IV SCH (06:24)
[2022-12-20] MEDS ORDERED: LIDOCAINE 1% (10MG/ML) FOR IV START INTRADERMA PRN (06:24)
[2022-12-20 06:38] VITALS: TEMP 97.8
[2022-12-20] MEDS ORDERED: ONDANSETRON 4 MG/2 ML VIAL ONE (06:46)
[2022-12-20 06:52] LABS: Glucose,Whole Blood 92 mg/dL (70-110)
[2022-12-20] MEDS ORDERED: ROPIVACAINE 5 MG/ML 20 ML AMPULE ONE (06:55)
[2022-12-20] MEDS ORDERED: MIDAZOLAM 2 MG/2 ML VIAL ONE (06:55)
[2022-12-20] MEDS ORDERED: methylPREDNISolone ACETATE 40 MG/ML 1 ML VIAL ONE (06:55)
--- NOTE | 2022-12-20 07:06 | P.PCN ---
Date of Procedure: 12/20/22 Procedure(s) Performed: Preoperative diagnoses= 1- Greater occipital neuralgia.. 2-cervicogenic headache. 3-cervical spondylosis with cervical facet arthropathy Postoperative diagnoses= same as preoperative diagnosis. Procedure= Bilateral Greater occipital nerve block Anesthesia= moderate sedation with Versed 2 mg . Sedation start time : 06:58 . Sedation end time : 07:03 . Estimated blood loss=minimal. Procedure indication= the patient had a history of severe chronic neck pain ,and headache, diagnosed with occipital neuralgia exam was positive for severe tenderness over the occipital nerve bilaterally, she will be a good candidate occipital nerve block, patient failed conservative management Procedure description= the patient was seen and identified in the preoperative holding area, risks and benefits and alternative of the procedure and possible complications discussed with the patient, and he agreed with the preceding, patient signed the consent, an IV was started, and vital signs were monitored and were stable throughout the procedure, patient was placed in the sitting position or table and the neck area was prepped and draped with a sterile fashion, vital signs were closely monitored during the procedure, 25-gauge needle advanced 1 inch lateral to the occipital protuberance on the right side, at the location of the right occipital nerve , then after negative aspiration for heme and CSF and there was no paresthesia during the injection, 6 ml of Robivacaine 0.5% and 20 mg of Depo-Medrol injected after negative aspiration, the needle removed, and the entire same procedure was repeated for the left Greater occipital nerve. Patient tolerated the procedure well without any complication, The patient returned to supine position after the back was cleaned and a Band- Aid applied, the patient transported to recovery room in stable condition and he was monitored for 30 minutes before he was discharged home and then patient was reexamined before going home and patient was discharged in stable condition and patient will follow up with the pain clinic in a few weeks.
[2022-12-20] MEDS ORDERED: IV FLUID CONTINUATION 1,000 ML IV ONE (07:17)
[2022-12-20 07:19] VITALS: RESP 18
[2022-12-20 07:31] VITALS: BP 97/57; PULSE 76
== END 2022-12-20 07:40 | disposition home or self-care (01) ==
LOC: ORPAIN 06:12
PROVIDERS: ATTEND Specialist
DX: M54.81 Occipital neuralgia (principal); G44.86 Cervicogenic headache; M47.812 Spondylosis without myelopathy or radiculopathy, cervical region; Z88.5 Allergy status to narcotic agent; Z88.8 Allergy status to other drugs, medicaments and biological substances
CPT/HCPCS: 64405; J2250; J1030; J2405; J2795

== ENCOUNTER → 2023-03-01 | Outpatient (CLI) | payer BC, MEDICARE ==
[2023-03-01 18:55] LABS: Basophils # (A) 0.08 X 10*3/uL (0.00-0.10); Basophils % (A) 1.2 %; Eosinophils # (A) 0.09 X 10*3/uL (0.04-0.35); Eosinophils % (A) 1.3 %; HCT 46.5 % (37.2-46.3); HGB 14.6 g/dL (12.0-15.0); Immature Grans, Automated 0.4 %; Lymphocytes # (A) 1.78 X 10*3/uL (0.90-5.00); Lymphocytes % (A) 26.2 %; MCH 28.3 pg (27.0-32.0); MCHC 31.4 g/dL (32.0-37.0); MCV 90.1 fL (80.0-97.0); Monocytes # (A) 0.51 X 10*3/uL (0.20-1.00); Monocytes % (A) 7.5 %; NRBC Per 100 WBC 0 /100 WBCS (0.0-0.0); Neutrophils % (A) 63.4 %; Platelet Count 271 X 10*3/uL (140-440); RBC 5.16 X 10*6/uL (4.10-5.20); RDW 13.4 % (11.5-14.5); WBC 6.79 X 10*3/uL (4.50-10.00)
[2023-03-01 19:54] LABS: ALT 21 U/L (8-44); AST 27 U/L (13-35); African American GFR (CKD) 84.6 (60.0-200.0); Albumin 4.6 g/dL (3.8-4.9); Albumin/Globulin Ratio 1.84 (1.60-3.17); Alkaline Phosphatase 101 U/L (41-126); BUN/Creat Ratio 18.89 Ratio (12.00-20.00); Calcium 9.7 mg/dL (8.7-10.3); Carbon Dioxide 24.4 mmol/L (20.0-27.5); Chloride 103 mmol/L (96-109); Chol/HDL Ratio 2.61 Ratio; Globulin 2.5 g/dL (1.6-3.3); Glucose 80 mg/dL (70-110); LDL Cholesterol,Calculated 72.6 mg/dL (0.0-131.0); Magnesium 2.3 mg/dL (1.5-2.4); Potassium 4.3 mmol/L (3.5-5.5); Sodium 139 mmol/L (135-145); Total Protein 7.1 g/dL (6.2-8.2)
[2023-03-01 20:59] LABS: Appearance,Urine Clear (Clear); Bilirubin,Urine Negative (Negative); Blood,Urine Negative (Negative); Color,Urine Yellow (Yellow); Ketones,Urine Negative (Negative); Nitrite,Urine Negative (Negative); PH, Urine 5.5 (5.0-8.0); Specific Gravity,Urine 1.026 (1.001-1.030)
[2023-03-01 21:44] LABS: Bacteria,Urine 1+ /HPF (None Seen)
== END | disposition home or self-care (01) ==
LOC: LABWHC1 11:11
PROVIDERS: ATTEND Internal Medicine
DX: Z01.812 Encounter for preprocedural laboratory examination (principal); I10 Essential (primary) hypertension; M81.0 Age-related osteoporosis without current pathological fracture; E78.2 Mixed hyperlipidemia
CPT/HCPCS: 36415; 80053; 80061; 81001; 82306; 83036; 83735; 84439; 84443; 85025; 87086

== ENCOUNTER → 2023-03-07 | Outpatient (CLI) | payer BC, MEDICARE ==
--- NOTE | 2023-03-08 07:12 | US ---
EXAMINATION TYPE: US carotid duplex BILAT DATE OF EXAM: 03/07/2023 COMPARISON: NONE CLINICAL HISTORY: G45.9 TIA. Patient states sometimes her tongue twitches. No HTN. Family hx caroti d disease TECHNIQUE: Carotid duplex ultrasound examination. Indirect Doppler criteria was utilized. FINDINGS: EXAM MEASUREMENTS: RIGHT: Peak Systolic Velocity (PSV) cm/sec ----- Right CCA: 104.0 ----- Right ICA: 121.5 ----- Right ECA: 93.0 ICA/CCA ratio: 1.2 RIGHT: End Diastole cm/sec ----- Right CCA: 32.8 ----- Right ICA: 57.5 ----- Right ECA: 16.0 LEFT: Peak Systolic Velocity (PSV) cm/sec ----- Left CCA: 114.0 ----- Left ICA: 112.1 ----- Left ECA: 83.1 ICA/CCA ratio: 1.0 LEFT: End Diastole cm/sec ----- Left CCA: 43.0 ----- Left ICA: 47.4 ----- Left ECA: 19.3 VERTEBRALS (direction of flow): Right Vertebral: Antegrade Left Vertebral: Antegrade Rhythm: Normal BRICK AND BLOCK MASON NOTES: No plaque or significant stenosis. No wall thickening. IMPRESSION: No ultrasound evidence for hemodynamically significant stenosis of the internal carotid arteries. Criteria for Assigning % of Stenosis / Diameter reduction (Estimation based on the indirect measurements of the internal carotid artery velocities (ICA PSV). 1. Normal (no stenosis)=ICA PSV < 125 cm/s: ratio < 2.0: ICA EDV<40 cm/s. 2. Less than 50% stenosis=ICA PSV < 125 cm/s: ratio < 2.0: ICA EDV<40 cm/s. 3. 50 to 69% stenosis=ICA PSV of 125 to 230 cm/s: ration 2.0 ? 4.0: ICA EDV 40-100 cm/s. 4. Greater than 70% stenosis to near occlusion= ICA PSV > 230 cm/s: ratio > 4.0: ICA EDV > 100 cm/s. 5. Near occlusion= ICA PSV velocities may be low or undetectable: variable ratio and ICA EDV. 6. Total occlusion=unable to detect flow.
== END | disposition home or self-care (01) ==
LOC: RADUSWWP 15:55
PROVIDERS: ATTEND Internal Medicine
DX: G45.9 Transient cerebral ischemic attack, unspecified (principal)
CPT/HCPCS: 93880

== ENCOUNTER → 2023-04-16 | Outpatient (CLI) | payer BC, MEDICARE ==
[2023-04-16 16:29] LABS: Protein, Total 7.2 g/dL (6.2-8.2)
[2023-04-16 19:29] LABS: Cardiolipin Ab IgG Interp NEGATIVE (NEGATIVE); Cardiolipin Ab IgM Interp NEGATIVE (NEGATIVE); Cardiolipin IgA Antibody <2.0 U/mL; Cardiolipin IgM Antibody 1.8 U/mL
[2023-04-17 12:09] LABS: APTT 39 Sec(s) (<43); Dilute Russell Viper Venom 29 Sec(s) (<44)
[2023-04-17 13:03] LABS: Angiotensin-1 Converting Enz. 9 U/L (8-52)
[2023-04-17 14:34] LABS: Albumin 4.19 g/dL (3.80-4.90); Gamma Globulin 1.03 g/dL (0.70-1.50)
== END | disposition home or self-care (01) ==
LOC: LABWHC1 10:55
PROVIDERS: ATTEND Psychiatry & Neurology Neurology
DX: R47.9 Unspecified speech disturbances (principal); R25.1 Tremor, unspecified; R20.0 Anesthesia of skin
CPT/HCPCS: 36415; 82164; 82607; 84165; 84443; 85300; 85303; 85306; 85613; 85652; 85730; 86038; 86147

== ENCOUNTER 2023-07-03 11:36 | Emergency (ER) | payer BC, MEDICARE ==
[2023-07-03 11:44] VITALS: BP 128/75; PULSE 96; TEMP 98.7
--- NOTE | 2023-07-03 12:21 | XR ---
EXAMINATION TYPE: XR chest 2V DATE OF EXAM: 07/03/2023 12:18 PM COMPARISON: Chest radiographs from 03/06/2022 TECHNIQUE: XR chest 2V Frontal and lateral views of the chest. CLINICAL INDICATION:Female, 53 years old with history of cough fever; FINDINGS: Lungs/Pleura: There is no evidence of pleural effusion, focal consolidation, or pneumothorax. Pulmonary vascularity: Unremarkable. Heart/mediastinum: Cardiomediastinal silhouette is unremarkable. Musculoskeletal: No acute osseous pathology. Cervical fusion changes. Other: Cholecystectomy clips in the right upper quadrant. IMPRESSION: No acute cardiopulmonary disease/process.
[2023-07-03 12:36] VITALS: RESP 16
== END 2023-07-03 14:29 | disposition left against medical advice (07) ==
LOC: EC 11:36
DX: J06.9 Acute upper respiratory infection, unspecified (principal); Z53.21 Procedure and treatment not carried out due to patient leaving prior to being seen by health care provider; Z20.822 Contact with and (suspected) exposure to COVID-19
CPT/HCPCS: 71046; 87636; 99499

== ENCOUNTER 2023-10-11 06:17 | Day surgery (SDC) | payer BC, MEDICARE ==
[2023-10-08 15:38] VITALS: BMI 28.0
[2023-10-11 06:47] VITALS: RESP 16; TEMP 98
[2023-10-11] MEDS ORDERED: ONDANSETRON 4 MG/2 ML VIAL IVP ONE (06:50)
[2023-10-11 06:53] LABS: Glucose,Whole Blood 101 mg/dL (70-110)
[2023-10-11] MEDS ORDERED: ONDANSETRON 4 MG/2 ML VIAL ONE (06:53)
[2023-10-11] MEDS ORDERED: MIDAZOLAM 2 MG/2 ML VIAL ONE (06:57)
[2023-10-11] MEDS ORDERED: ROPIVACAINE 5MG/ML 20ML VIAL ONE (06:57)
[2023-10-11] MEDS ORDERED: fentaNYL (PF) 50 MCG/ML 2 ML AMP ONE (06:57)
[2023-10-11] MEDS ORDERED: LACTATED RINGERS 1,000 ML IV SCH (07:00)
[2023-10-11] MEDS ORDERED: IV FLUID CONTINUATION 1,000 ML IV ONE (07:32)
--- NOTE | 2023-10-11 07:58 | FL ---
Intraoperative/procedural fluoroscopic services were provided for right cervical rad frequency. Total fluoroscopy time is 56.2 seconds with a total of 1 submitted image to PACS. Total DAP [id number] mGym2. Please see the operative note for further details.
[2023-10-11 07:59] VITALS: BP 111/56; PULSE 70
--- NOTE | 2023-10-11 08:36 | P.PCN ---
Date of Procedure: 10/11/23 Description of Procedure: PREOPERATIVE DIAGNOSIS: Cervical spondylosis with Facet Arthropathy without myelopathy. POSTOPERATIVE DIAGNOSIS: Cervical spondylosis with Facet Arthropathy without myelopathy. PROCEDURES: Radiofrequency thermocoagulation, right C3, C4, C5, medial branch with Fluroscopy [facility](fluoroscopy was available in Radiology department ) (to denervate the facet joint at right C3- 4 , C4- 5 ) ANESTHESIA: Monitored anesthesia care as per anesthesia department . EBL: Minimal PROCEDURE INDICATION: The patient with neck pain secondary to cervical arthropathy who had more than 50% relief of her pain with previous diagnostic cervical medial branch block. PROCEDURE DESCRIPTION / TECHNIQUE: The patient was seen and identified in the preoperative area. Risks, benefits, complications, and alternatives were discussed with the patient, the patient agreed to proceed with the procedure and signed the consent. IV was started. Vital signs remained stable throughout the procedure. Patient was taken to the OR and time out was completed. The patient was placed in the prone position on the procedure table. A pillow was placed under the patients chest to increase the cervical interlaminar space. The cervical area was prepped and draped in the usual sterile fashion. Critical pause was taken. Vital signs were closely monitored during the procedure. Conscious sedation was used during the procedure to decrease patients anxiety. Using cross-table lateral fluoroscopy, the centroid of the trapezoid of right C3, C4, C5, were identified, marked, and localized with 1% lidocaine. Subsequently, a 20 -pp radiofrequency cannula with a 10-mm active tip was advanced guided by fluoroscopy to the centroid of the trapezoid of right C3, C4, C5, . Needle tip position was confirmed at the centroid of the trapezoids of C3, C4, C5, wit h anteroposterior and lateral view fluoroscopy. Deep of the needle was within dorsal one third of the articular column in lateral view of the fluoroscope and away from vertebral artery and spinal nerve.Each site then underwent sensory testing at 50 Hz and 0 to 1 volt and motor testing at 2 Hz and 0 to 3 volt with local stimulation, but no radicular symptoms down the arm. Thereafter each sites underwent radiofrequency thermocoagulation at 80 degrees celsius for 90 seconds after injecting 1 ml of PF Ropivacaine 0.5 %. Second lesion where done at each point after rotating the radiofrequency needle 180 with same settings. Cannulas were retracted while injecting lidocaine 1% until the needle is out. Skin was cleansed and bandages were applied. COMPLICATIONS: No acute complications. DISPOSITION / PLANS: The patient was placed in a supine position and transferred to the recovery area in a stable condition for observation and was discharged from the recovery room after meeting discharge criteria. Home discharge instructions given to the patient by the staff. The patient was reexamined prior to discharge. We will schedule for left-sided radiofrequency in about 2-4 weeks.
== END 2023-10-11 08:03 | disposition home or self-care (01) ==
LOC: ORPAIN 06:17
PROVIDERS: ATTEND Pain Medicine Interventional Pain Medicine
DX: M47.812 Spondylosis without myelopathy or radiculopathy, cervical region (principal); I10 Essential (primary) hypertension; E78.5 Hyperlipidemia, unspecified; E11.9 Type 2 diabetes mellitus without complications; M19.90 Unspecified osteoarthritis, unspecified site; M06.9 Rheumatoid arthritis, unspecified; K21.9 Gastro-esophageal reflux disease without esophagitis; Z79.85 Long-term (current) use of injectable non-insulin antidiabetic drugs; Z91.048 Other nonmedicinal substance allergy status; Z88.5 Allergy status to narcotic agent; Z79.1 Long term (current) use of non-steroidal anti-inflammatories (NSAID); Z79.899 Other long term (current) drug therapy
CPT/HCPCS: 64633; 64634; J2250; J2405; J2001; J3010; J2795

== ENCOUNTER 2023-11-08 06:14 | Day surgery (SDC) | payer BC, MEDICARE ==
[2023-11-08] MEDS ORDERED: LACTATED RINGERS 1,000 ML IV SCH (06:30)
[2023-11-08] MEDS ORDERED: ONDANSETRON 4 MG/2 ML VIAL ONE (06:41)
[2023-11-08] MEDS ORDERED: ONDANSETRON 4 MG/2 ML VIAL IVP ONE (06:49)
[2023-11-08] MEDS ORDERED: SCOPOLAMINE 1 MG/72 HR PATCH TRANSDERM ONE (06:49)
[2023-11-08 06:50] VITALS: TEMP 97.7
[2023-11-08 06:50] LABS: Glucose,Whole Blood 107 mg/dL (70-110)
[2023-11-08] MEDS ORDERED: ROPIVACAINE 5MG/ML 20ML VIAL ONE (07:04)
[2023-11-08] MEDS ORDERED: methylPREDNISolone ACETATE 40 MG/ML 1 ML VIAL ONE (07:04)
[2023-11-08] MEDS ORDERED: fentaNYL (PF) 50 MCG/ML 2 ML AMP ONE (07:04)
[2023-11-08] MEDS ORDERED: MIDAZOLAM 2 MG/2 ML VIAL ONE (07:04)
--- NOTE | 2023-11-08 07:27 | P.PCN ---
Date of Procedure: 11/08/23 Procedure(s) Performed: PREOPERATIVE DIAGNOSIS: Cervical spondylosis with Facet Arthropathy without myelopathy. POSTOPERATIVE DIAGNOSIS: Cervical spondylosis with Facet Arthropathy without myelopathy. PROCEDURES: Radiofrequency thermocoagulation Left C3, C4, C5, medial branch with Fluroscopy [facility](fluoroscopy was available in etiology department ) (to denervate the facet joint Left at C3- 4 , C4- 5 ) ANESTHESIA: Monitored anesthesia care as per anesthesia department EBL: Minimal PROCEDURE INDICATION: The patient with neck pain secondary to cervical arthropathy who had more than 50% relief of her pain with previous diagnostic cervical medial branch block. PROCEDURE DESCRIPTION / TECHNIQUE: The patient was seen and identified in the preoperative area. Risks, benefits, complications, and alternatives were discussed with the patient, the patient agreed to proceed with the procedure and signed the consent. IV was started. Vital signs remained stable throughout the procedure. Patient was taken to the OR and time out was completed. The patient was placed in the lateral position( Left side up ) on the procedure table. The cervical area was prepped and draped in the usual sterile fashion. Critical pause was taken. Vital signs were closely monitored during the procedure. Conscious sedation was used during the procedure to decrease patients anxiety. Using cross-table lateral fluoroscopy, the centroid of the trapezoid of Left C3, C4, C5, were identified, marked, and localized with 1% lidocaine. Subsequently, a 20 [id number] radiofrequency cannula with a 10-mm active tip was advanced guided by fluoroscopy to the centroid of the trapezoid of Left C3, C4, C5, . Needle tip position was confirmed at the centroid of the trapezoids of Left C3, C4, C5, with anteroposterior fluoroscopy. Each site then underwent sensory testing at 50 Hz and 0 to 1 volt and motor testing at 2 Hz and 0 to 3 volt with local stimulation, but no radicular symptoms down the arm. Thereafter each sites underwent radiofrequency thermocoagulation at 80 degrees celsius for 90 seconds after injecting 0.5 ml of PF Ropivacaine 0.5 %. After thermocoagulation, 1 ml of the block solution containing Depo-Medrol 40 mg and 3 mL of preservative-free normal saline was injected at the Left C3, C4, C5, levels after negative aspiration of CSF and blood and with no paresthesias. Cannulas were retracted while injecting lidocaine 1% until the needle is out , at the end of this procedure,the Skin was cleansed and bandages were applied. COMPLICATIONS: No acute complications. DISPOSITION / PLANS: The patient was placed in a supine position and transferred to the recovery area in a stable condition for observation and was discharged from the recovery room after meeting discharge criteria. Home discharge instructions given to the patient by the staff. The patient was reexamined prior to discharge. The patient will schedule a follow up in the clinic in 2-4 weeks.
[2023-11-08] MEDS ORDERED: IV FLUID CONTINUATION 1,000 ML IV ONE (07:29)
[2023-11-08 07:39] VITALS: PULSE 72; RESP 16
[2023-11-08 08:04] VITALS: BP 105/60
--- NOTE | 2023-11-08 12:04 | FL ---
EXAMINATION TYPE: FL guided pain mgmt statistic DATE OF EXAM: 11/08/2023 FLUOROSCOPY Fluoroscopy time of 12 seconds was used during cervical radiofrequency ablation. 2 image/s document/ s the procedure. .[id number] mGym2
== END 2023-11-08 07:59 | disposition home or self-care (01) ==
LOC: ORPAIN 06:14
PROVIDERS: ATTEND Specialist
DX: M50.321 Other cervical disc degeneration at C4-C5 level (principal); M47.812 Spondylosis without myelopathy or radiculopathy, cervical region; M06.9 Rheumatoid arthritis, unspecified; I10 Essential (primary) hypertension; E78.5 Hyperlipidemia, unspecified; E11.9 Type 2 diabetes mellitus without complications; Z88.5 Allergy status to narcotic agent; K21.9 Gastro-esophageal reflux disease without esophagitis; Z79.899 Other long term (current) drug therapy; Z79.85 Long-term (current) use of injectable non-insulin antidiabetic drugs
CPT/HCPCS: 64633; 64634; 99152; J2250; J1030; J2405; J3010; J2795

== ENCOUNTER → 2023-12-03 | Outpatient (CLI) | payer BC, MEDICARE ==
[2023-12-03 13:07] VITALS: BP 110/75; PULSE 79; RESP 16; TEMP 97.7
--- NOTE | 2023-12-03 14:23 | P.PAINPG ---
PQRS Measure Charge Sheet Comment: A 53 yr old female with a history of severe and chronic neck pain secondary to DDD, spondylosis and facet arthropathy without myelopathy presents today for evaluation s/p BL RFA C3-C4, C4-C5. Pt states she experienced 60 % pain relief s/p procedure. Pain level is currently at 6/10 in intensity, constant, localized in R cervical spine, predominantly axial, sore/ throbbing in character w occasional shooting towards the BL shoulders. Pain is provoked by hyperextension, rotation, lifting. Pain is alleviated with medications, injections in the past, heat, PT integrated with massage 6 weeks in May 2022, massage semi monthly x 2 yrs which she is currently in, laying supine and rest. Cervical disability pain score of 18. Interventional pain procedures completed include BL RFA C3-C5 (2020, Nov 2023), R RFA C3-C5 (Aug 2022), CESIs, BL JOCELYNE x1 (Dec 2022) Patient is currently on Ibu Patient denies any side effects of the medication(s), denies excessive drowsiness or sleepiness, denies suicidal ideation and reports that the current pain medication is helping to control the pain and improve activities of daily living. Patient denies any motor or sensory deficits. Patient denies any fever or night sweats, denies any change in the bowel movements or urination. Physical Examination: -Constitutional: Cooperative. Not in acute distress . - Neurologic: Cranial nerve II to XII intact. No focal neurological deficits. - Psychatric: Alert & oriented x 3. Matching mood & appropriate affect. Judgment and insight intact. - Musculoskeletal: Cervical spine: Muscle bulk/ tone/ strength in the bilateral upper extremities normal Vertebral body tenderness to palpation over Spurling test positive Distraction test positive Facet loading test positive Taut bands w twitch response over BL C2-T2 Thoracic spine Muscle bulk / tone/ strength in the bilateral paraspinal muscles normal Vertebral body tender to palpation over Facet loading test positive Lumbar spine: Motor bulk/ tone/ strength lower extremities , thigh and legs : 5/5 Deep tendon reflexes : Normal Knee Jerk. Normal Ankle Jerk . Vertebral body tenderness to palpation over Lumbar Facet Loading Test positive Straight Leg Raise: positive at 30 degrees right side/ left side Gaenslen's Test positive Sacral spine : Severe tenderness over the Sacroiliac joint: right side / left side Range of motion: Flexion of the lumbar spine <60 degrees Range of motion: Extension of the lumbar spine <20 degrees Gaenslen's Test positive Gina test: positive right side / left side Thigh Thrust Test Sacral Thrust Test Assessment and plan: Chronic neck pain secondary to DDD, spondylosis and facet arthropathy without myelopathy Recommendation of BL TPIs C2-T2 #1. May need a series of injections for optimal pain relief. Risks, benefits of procedure discussed and pt verbalized understanding. Admits to anticoagulant use or medical history of diabetes. Pr otocol for discontinuation/ continuation of medications jen procedure discussed. All patient questions answered I have spent less than 30 minutes on patient care today. Dr Herbert was avail able by phone for the evaluation of this patient. The time was used to review the medical records including relevant urine studies and Prescription history (MAPs), review of the available imaging, evaluation and examination of the patient, coordination of care with the medical staff and if applicable referring physicians, as well as creation of the medical record PQRS Narrative: Smoking Status Never smoker Home Medications: Ambulatory Orders Atorvastatin Calcium [Lipitor] 20 mg PO HS 09/14/20 FLUoxetine HCL [PROzac] 40 mg PO DAILY 09/14/20 lisinopriL [Zestril] 2.5 mg PO HS 09/14/20 Semaglutide [Ozempic] 0.25 mg SQ TU 07/21/21 Famotidine [Zantac-360 (Famotidine)] 20 mg PO HS 11/13/21 Pantoprazole [Protonix] 40 mg PO DAILY 01/03/23 Linaclotide [Linzess] 145 mcg PO DAILY 10/08/23 Cholecalciferol [Vitamin D3 (25 Mcg = 1000 Iu)] 50 mcg PO DAILY 11/06/23 Controlled Substance Measures - Controlled Substance Measures Is patient prescribed a controlled substance at discharge?: No
== END ==
LOC: PNWHC3 09:33
PROVIDERS: ATTEND Specialist
DX: M50.30 Other cervical disc degeneration, unspecified cervical region (principal); M47.812 Spondylosis without myelopathy or radiculopathy, cervical region; G89.29 Other chronic pain; Z91.048 Other nonmedicinal substance allergy status; Z88.5 Allergy status to narcotic agent
CPT/HCPCS: 99211

== ENCOUNTER 2023-12-17 06:10 | Day surgery (SDC) | payer BC, MEDICARE ==
[2023-12-12 08:54] VITALS: BMI 28.0
[2023-12-17] MEDS ORDERED: LACTATED RINGERS 1,000 ML IV SCH (06:17)
[2023-12-17 06:38] LABS: Glucose,Whole Blood 92 mg/dL (70-110)
[2023-12-17 06:41] VITALS: RESP 18; TEMP 97.5
[2023-12-17] MEDS ORDERED: methylPREDNISolone ACETATE 40 MG/ML 1 ML VIAL ONE (06:56)
[2023-12-17] MEDS ORDERED: ROPIVACAINE 5MG/ML 20ML VIAL ONE (06:56)
--- NOTE | 2023-12-17 07:09 | P.PCN ---
Date of Procedure: 12/17/23 Procedure(s) Performed: PREOPERATIVE DIAGNOSI= 1-myofascial pain syndrome and cervical and upper thoracic area . 2- Cervical Spondylosis with Facet Arthropathy.without myelopathy POSTOPERATIVE DIAGNOSIS: Same as preop diagnosis. PROCEDURES: Diagnostic = trigger point injection cervical paraspinal muscle and trapezius muscle (Total of 4 trigger point injected on the left side cervical paraspinal muscles and left upper Thoracic muscles ) (And 5 points right side cervical paraspinal muscles and right upper thoracic muscle ) ANESTHESIA: none EBL: Minimal PROCEDURE INDICATION: The patient with neck pain secondary to myofascial pain syndrome, unresponsive to more conservative treatments. PROCEDURE DESCRIPTION / TECHNIQUE: The patient was seen and identified in the preoperative area. Risks, benefits, complications, and alternatives were discussed with the patient, the patient agreed to proceed with the procedure and signed . Vital signs remained stable throughout the procedure. Patient was taken to the OR and time out was completed. The patient was placed in the sitting position on the procedure table. The cervical area was prepped and draped in the usual sterile fashion. Critical pause was taken. Vital signs were closely monitored during the procedur. Then after that each of the trigger point injected using ropivacaine 18 ml 0.5% mixed with 40 mg of Depo-Medrol , and 2 mL of the mixture injected at each trigger point after negative aspiration, actually done using 25-gauge needle, under was no paresthesia during the injection Total of 18 ML of ropivacaine 0. 5% was used, and mixed with 40 mg of Depo- Medrol COMPLICATIONS: No acute complications. DISPOSITION / PLANS: The patient was placed in a supine position and transferred to the recovery area in a stable condition for observation and was discharged from the recovery room after meeting discharge criteria. Home discharge instructions given to the patient by the staff. The patient was reexamined prior to discharge. The patient will schedule a follow up in the clinic in 2-4 weeks.
[2023-12-17 07:28] VITALS: BP 106/65; PULSE 75
== END 2023-12-17 07:29 | disposition home or self-care (01) ==
LOC: ORPAIN 06:10
PROVIDERS: ATTEND Specialist
DX: M79.18 Myalgia, other site (principal); M47.812 Spondylosis without myelopathy or radiculopathy, cervical region; E11.9 Type 2 diabetes mellitus without complications; Z79.1 Long term (current) use of non-steroidal anti-inflammatories (NSAID); Z79.85 Long-term (current) use of injectable non-insulin antidiabetic drugs; Z90.710 Acquired absence of both cervix and uterus; Z88.5 Allergy status to narcotic agent; Z91.048 Other nonmedicinal substance allergy status
CPT/HCPCS: 20553; 99211; J1030; J2795

== ENCOUNTER → 2024-01-09 | Outpatient (CLI) | payer BC, MEDICARE ==
[2024-01-09 10:30] VITALS: BP 113/76; PULSE 91; RESP 16
--- NOTE | 2024-01-09 14:32 | P.PAINPG ---
PQRS Measure Charge Sheet Comment: A 53 yr old female with a history of severe and chronic neck pain secondary to DDD, spondylosis and facet arthropathy without myelopathy presents today for evaluation s/p BL TPIs C2-T2 #1. Pt states she experienced 40 % pain relief s/p procedure. Pain level is currently at 7/10 in intensity, constant, localized in BL cervical spine, predominantly axial, throbbing in character w occasional shooting towards the BL shoulders and BUEs. Pain is provoked by hyperextension, rotation, lifting, ice. Pain is alleviated with medications, injections in the past, heat, PT integrated with massage 6 weeks in May 2022, massage semi monthly x 2 yrs which she is currently in, laying supine and rest. Cervical disability pain score of 18. Interventional pain procedures completed include BL RFA C3-C5 (2020, Nov 2023), R RFA C3-C5 (Aug 2022), CESIs, BL JOCELYNE x1 (Dec 2022). BL TPIs C2-T2 x1 Patient is currently on Ibu Patient denies any side effects of the medication(s), denies excessive drowsiness or sleepiness, denies suicidal ideation and reports that the current pain medication is helping to control the pain and improve activities of daily living. Patient denies any motor or sensory deficits. Patient denies any fever or night sweats, denies any change in the bowel movements or urination. Physical Examination: -Constitutional: Cooperative. Not in acute distress . - Neurologic: Cranial nerve II to XII intact. No focal neurological deficits. - Psychatric: Alert & oriented x 3. Matching mood & appropriate affect. Judgment and insight intact. - Musculoskeletal: Cervical spine: Muscle bulk/ tone/ strength in the bilateral upper extremities normal Vertebral body tenderness to palpation over Spurling test positive Distraction test positive Facet loading test positive Taut bands w twitch response over BL C2-T2 Thoracic spine Muscle bulk / tone/ strength in the bilateral paraspinal muscles normal Vertebral body tender to palpation over Facet loading test positive Lumbar spine: Motor bulk/ tone/ strength lower extremities , thigh and legs : 5/5 Deep tendon reflexes : Normal Knee Jerk. Normal Ankle Jerk . Vertebral body tenderness to palpation over Lumbar Facet Loading Test positive Straight Leg Raise: positive at 30 degrees right side/ left side Gaenslen's Test positive Sacral spine : Severe tenderness over the Sacroiliac joint: right side / left side Range of motion: Flexion of the lumbar spine <60 degrees Range of motion: Extension of the lumbar spine <20 degrees Gaenslen's Test positive Gina test: positive right side / left side Thigh Thrust Test Sacral Thrust Test Assessment and plan: Chronic neck pain secondary to DDD, spondylosis and facet arthropathy without myelopathy Recommendation of PT to focus on therapeutic massage x 6 wks M50.30. May need a series of injections for optimal pain relief. Risks, benefits of procedure discussed and pt verbalized understanding. Admits to anticoagulant use or medical history of diabetes. Protocol for discontinuation/ continuation of medications jen procedure discussed. All patient questions answered I have spent less than 30 minutes on patient care today. Dr Herbert was available by phone for the evaluation of this patient. The time was used to review the medical records including relevant urine studies and Prescription history (MAPs), review of the available imaging, evaluation and examination of the patient, coordination of care with the medical staff and if applicable referring physicians, as well as creation of the medical record PQRS Narrative: Smoking Status Never smoker Hx Alcohol Use (MH) No Home Medications: Ambulatory Orders Atorvastatin Calcium [Lipitor] 20 mg PO HS 09/14/20 FLUoxetine HCL [PROzac] 40 mg PO DAILY 09/14/20 lisinopriL [Zestril] 2.5 mg PO HS 09/14/20 Semaglutide [Ozempic] 0.25 mg SQ TU 07/21/21 Famotidine [Zantac-360 (Famotidine)] 20 mg PO HS 11/13/21 Pantoprazole [Protonix] 40 mg PO DAILY 01/03/23 Linaclotide [Linzess] 145 mcg PO DAILY 10/08/23 Cholecalciferol [Vitamin D3 (25 Mcg = 1000 Iu)] 50 mcg PO DAILY 11/06/23 Controlled Substance Measures - Controlled Substance Measures Is patient prescribed a controlled substance at discharge?: No
== END ==
LOC: PNWHC3 09:45
PROVIDERS: ATTEND Specialist
DX: M50.33 Other cervical disc degeneration, cervicothoracic region (principal); M47.813 Spondylosis without myelopathy or radiculopathy, cervicothoracic region; G89.29 Other chronic pain; Z91.048 Other nonmedicinal substance allergy status; Z88.5 Allergy status to narcotic agent
CPT/HCPCS: 99211

== ENCOUNTER → 2024-03-17 | Outpatient (CLI) | payer BC, MEDICARE ==
--- NOTE | 2024-03-17 18:20 | BD ---
EXAMINATION TYPE: Axial Bone Density DATE OF EXAM: 03/17/2024 CLINICAL HISTORY: 53 years old Female. ICD-10 CODE: M85.851 OTH DISRD OF BONE DEN Height: 68in Weight: 196lbs FRAX RISK QUESTIONS: Secondary Osteoporosis: Rheumatoid Arthritis: yes RISK FACTORS HISTORY OF: MEDICATIONS: EXAM MEASUREMENTS: Bone mineral densitometry was performed using the [employer] System. Bone mineral density as measured about the Lumbar spine is: ----- L1-L4(G/cm2): 1.020 T Score Values are as follows: ----- L1: -1.8 ----- L2: -1.2 ----- L3: -0.9 ----- L4: -1.6 ----- L1-L4: -1.3 Z Score Values are as follows: ----- L1: -1.8 ----- L2: -1.2 ----- L3: -1.0 ----- L4: -1.6 ----- L1-L4: -1.3 First dexa at [facility] Bone mineral density about the R hip (g/cm2): 0.760 Bone mineral density about the L hip (g/cm2): 0.823 T Score values are as follows: -----R Neck: -1.7 -----L Neck: -1.6 -----R Total: -2.0 -----L Total: -1.5 Z Score values are as follows: -----R Neck: -1.2 -----L Neck: -1.1 -----R Total: -1.9 -----L Total: -1.4 First dexa at [facility] FRAX%s: The graph provided illustrates a 8.7% chance for a major osteoporotic fx and a 0.9% chance fo r the hips probability for fx in 10 years time. IMPRESSION: Osteopenia (T Score between -2.5 and -1). There is slightly increased risk of fracture and the patient may be considered for treatment. Re-Screen 2-5 years. NOTE: T-SCORE=SD OF THE YOUNG ADULT MEAN.
--- NOTE | 2024-03-19 18:44 | MM ---
Reason for Exam: Screening (asymptomatic). Last mammogram was performed 1 year(s) and 4 month(s) ago. Patient History: Menarche at age 16. First Full-Term at age 22. Left ovary removed at age 46. Hysterectomy at age 46. Perimenopausal. Risk Values: Yeis 5 year model risk: 0.9%. NCI Lifetime model risk: 6.9%. Prior Study Comparison: 02/03/2019 Bilateral MG 3D screening mammo w/cad, [facility]. 04/27/2021 Bilateral MG 3D screening mammo w/cad, [facility]. 11/26/2022 Bilateral MG 3D screening mammo w/cad, [facility]. Tissue Density: The breasts are heterogeneously dense, which may obscure small masses. Findings: Analyzed By CAD. There is no suspicious group of microcalcifications or new suspicious mass in either breast. Overall Assessment: Negative, BI-RAD 1 Management: Screening Mammogram of both breasts in 1 year. . Patient should continue monthly self-breast exams. A clinical breast exam by your physician is recommended on an annual basis. This exam should not preclude additional follow-up of suspicious palpable abnormalities. Note on Yesi scores and lifetime risk: 1. A Yesi score greater than 3% is considered moderate risk. If this is the case, consider specialist referral to assess eligibility for a risk reducing agent. 2. If overall lifetime risk for the development of breast cancer is 20% or higher, the patient may qualify for future screening with alternating mammogram and breast MRI. Electronically signed and approved by: Blatazar Dempsey M.D. Radiologist
== END | disposition home or self-care (01) ==
LOC: RADMAMWWP 08:59
PROVIDERS: ATTEND Internal Medicine
DX: Z12.31 Encounter for screening mammogram for malignant neoplasm of breast (principal); M85.89 Other specified disorders of bone density and structure, multiple sites
CPT/HCPCS: 77063; 77067; 77080

== ENCOUNTER → 2024-06-26 | Day surgery (SDC) | payer BC, MEDICARE ==
[2024-06-23 12:04] VITALS: BMI 28.0
[~2024-06-26] MED LIST changes: -LACTATED RINGERS 1,000 ML IV SCH; +LIDOCAINE 1% (10MG/ML) FOR IV START INTRADERMA PRN; +PROPOFOL 10 MG/ML 20 ML VIAL IV ONE
[2024-06-26 08:10] VITALS: RESP 16; TEMP 97.1
[2024-06-26] MEDS: LACTATED RINGERS 1,000 ML IV SCH (08:15)
[2024-06-26 08:16] LABS: Glucose,Whole Blood 95 mg/dL (70-110)
--- NOTE | 2024-06-26 08:50 | P.PCN ---
Date of Procedure: 06/26/24 Procedure(s) Performed: BRIEF HISTORY: Patient is a 54-year-old pleasant white female scheduled for an elective colonoscopy as a part of screening for colon cancer. PROCEDURE PERFORMED: Colonoscopy. PREOPERATIVE DIAGNOSIS: Screening for colon cancer. IV sedation per Anesthesia. PROCEDURE: After informed consent was obtained, the patient, was brought into the endoscopy unit. IV sedation was administered by Anesthesia under continuous monitoring. Digital rectal examination was normal. Initially the Olympus CF-160 flexible video colonoscope was then inserted in the rectum, gradually advanced into the cecum without any difficulty. Careful examination was performed as the scope was gradually being withdrawn. Ileocecal valve and the appendiceal orifice were visualized and appeared normal. Prep was excellent. Mucosa of the cecum, ascending colon, transverse colon, descending colon, sigmoid colon, and rectum appeared normal. Retroflexion was performed in the rectum and no lesions were seen. The patient tolerated the procedure well. IMPRESSION: Normal-appearing colon from rectum to cecum with no evidence of colorectal neoplasia. RECOMMENDATIONS: Findings of this examination were discussed with the patient as well as her family. She was advised to have repeat screening colonoscopy in 10 years..
[2024-06-26 09:24] VITALS: BP 107/71; PULSE 77
== END ==
LOC: ORWHC2ENDO 07:53
PROVIDERS: ATTEND Internal Medicine Gastroenterology
DX: Z12.11 Encounter for screening for malignant neoplasm of colon (principal); K21.9 Gastro-esophageal reflux disease without esophagitis; E78.5 Hyperlipidemia, unspecified; Z91.09 Other allergy status, other than to drugs and biological substances; Z88.5 Allergy status to narcotic agent; Z79.85 Long-term (current) use of injectable non-insulin antidiabetic drugs; Z79.899 Other long term (current) drug therapy
CPT/HCPCS: 45378; J2704

== ENCOUNTER → 2024-11-05 | Outpatient (CLI) | payer MEDICARE, BC ==
--- NOTE | 2024-11-06 09:58 | XR ---
EXAMINATION TYPE: XR chest 2V DATE OF EXAM: 11/05/2024 6:09 PM COMPARISON: 07/03/2023 CLINICAL INDICATION: Female, 54 years old with history of R05.9, cough, TECHNIQUE: Frontal and lateral views FINDINGS: The cardiomediastinal silhouette, aorta, and pulmonary vasculature are within normal limits. Lungs an d pleural spaces are clear. IMPRESSION: No acute cardiopulmonary process. [facility], , 11/06/2024 9:56 AM
== END | disposition home or self-care (01) ==
LOC: RADXRMAIN 17:58
PROVIDERS: ATTEND Internal Medicine
DX: R05.9 Cough, unspecified (principal)
CPT/HCPCS: 71046

== ENCOUNTER → 2024-12-22 | Outpatient (CLI) | payer BC, MEDICARE ==
--- NOTE | 2024-12-22 10:31 | CT ---
EXAMINATION TYPE: CT sinus wo con DATE OF EXAM: 12/22/2024 COMPARISON: None. CLINICAL INDICATION: Female, 54 years old with history of J01.01 ACUTE RECURRENT MAXILLARY SINUSITIS; PH[facility], SINUSITIS TECHNIQUE: CT scan of the sinuses is performed without contrast, axial images are obtained, coronal r eformatted images are also reviewed. CT DLP: 526 mGycm Automated exposure control for dose reduction was used. FINDINGS: The paranasal sinuses including the frontal, ethmoid, sphenoid, and maxillary sinuses bilaterally are well-aerated without abnormal opacification or suspicious air-fluid levels. The ostiomeatal complex is patent bilaterally on the coronal images. Visualized portion of mastoid air cells show no abnormal opacification. The globes are intact bilate rally. Visualized brain parenchyma is unremarkable. Degenerative change left temporomandibular joint incidentally noted. IMPRESSION: The sinuses are clear and the ostiomeatal complex is patent bilaterally. [facility], , 12/22/2024 10:29 AM
== END | disposition home or self-care (01) ==
LOC: RADCTMAIN 09:48
PROVIDERS: ATTEND Otolaryngology
DX: J01.01 Acute recurrent maxillary sinusitis (principal)
CPT/HCPCS: 70486

== ENCOUNTER → 2025-01-29 | Outpatient (CLI) | payer BC, MEDICARE ==
[2025-01-29 17:00] LABS: Blood Urea Nitrogen 22.6 mg/dL (9.0-27.0); Carbon Dioxide 26.1 mmol/L (21.6-31.8); Chloride 105 mmol/L (96-109); Potassium 4.5 mmol/L (3.5-5.5); Sodium 142 mmol/L (135-145)
== END | disposition home or self-care (01) ==
LOC: LABWHC1 11:25
PROVIDERS: ATTEND Internal Medicine Interventional Cardiology
DX: R00.2 Palpitations (principal)
CPT/HCPCS: 36415; 80051; 82565; 84443; 84520

== ENCOUNTER 2025-03-24 06:36 | Day surgery (SDC) | payer MEDICARE, BC ==
[2025-03-24] MEDS: ERTAPENEM 1 GM in SODIUM CHLORIDE 0.9% 50 ML IVPB ONE (07:35)
== END 2025-03-24 08:15 | disposition home or self-care (01) ==
LOC: CATHCVL 06:36
PROVIDERS: ATTEND Internal Medicine
DX: N39.0 Urinary tract infection, site not specified (principal); Z16.20 Resistance to unspecified antibiotic
CPT/HCPCS: 36410; 76937; J1335

== ENCOUNTER → 2025-05-18 | Outpatient (CLI) | payer BC, MEDICARE ==
--- NOTE | 2025-05-18 17:03 | MM ---
Reason for Exam: Screening (asymptomatic). Last mammogram was performed 1 year(s) and 2 month(s) ago. Patient History: Menarche at age 16. First Full-Term at age 22. Left ovary removed at age 46. Hysterectomy at age 46. Perimenopausal. Risk Values: Ysei 5 year model risk: 1.0%. NCI Lifetime model risk: 6.6%. Prior Study Comparison: 04/27/2021 Bilateral MG 3D screening mammo w/cad, [facility] . 11/26/2022 Bilateral MG 3D screening mammo w/cad, [facility]. 03/17/2024 Bilateral MG 3D screening mammo w/cad, [facility]. Tissue Density: The breasts are heterogeneously dense, which may obscure small masses. Findings: Analyzed By CAD. Unchanged tiny low axillary tail lymph node on the left. There is no suspicious group of microcalcifications or new suspicious mass in either breast. Overall Assessment: Benign, BI-RAD 2 Management: Screening Mammogram of both breasts in 1 year. Patient should continue monthly self-breast exams. A clinical breast exam by your physician is recommended on an annual basis. This exam should not preclude additional follow-up of suspicious palpable abnormalities. Note on Yesi scores and lifetime risk: 1. A Yesi score greater than 3% is considered moderate risk. If this is the case, consider specialist referral to assess eligibility for a risk reducing agent. 2. If overall lifetime risk for the development of breast cancer is 20% or higher, the patient may qualify for future screening with alternating mammogram and breast MRI. [facility], , 05/18/2025 5:00 PM. Electronically signed and approved by: Baltazar Dempsey M.D. Radiologist
== END | disposition home or self-care (01) ==
LOC: RADMAMWWP 15:36
PROVIDERS: ATTEND Internal Medicine
DX: Z12.31 Encounter for screening mammogram for malignant neoplasm of breast (principal); R92.333 Mammographic heterogeneous density, bilateral breasts
CPT/HCPCS: 77063; 77067

== ENCOUNTER → 2025-05-27 | Outpatient (CLI) | payer BC, MEDICARE ==
[2025-05-27 15:07] LABS: Basophils # (A) 0.06 X 10*3/uL (0.00-0.10); Basophils % (A) 0.7 %; Eosinophils # (A) 0.12 X 10*3/uL (0.04-0.35); Eosinophils % (A) 1.4 %; HCT 40.1 % (37.2-46.3); HGB 12.7 g/dL (12.0-15.0); Lymphocytes # (A) 2.85 X 10*3/uL (0.90-5.00); MCH 27.5 pg (27.0-32.0); MCHC 31.7 g/dL (32.0-37.0); MCV 86.8 FL (80.0-97.0); Mean Platelet Volume 10.8 FL (9.5-12.2); Monocytes # (A) 0.57 X 10*3/uL (0.20-1.00); Monocytes % (A) 6.8 %; NRBC Per 100 WBC 0 X 10*3/uL (0.00-0.01); Neutrophils # (A) 4.77 X 10*3/uL (1.80-7.70); Neutrophils % (A) 56.9 %; Platelet Count 258 X 10*3/uL (140-440); RBC 4.62 X 10*6/uL (4.10-5.20); RDW 13.1 % (11.5-14.5); WBC 8.39 X 10*3/uL (4.50-10.00)
[2025-05-27 16:30] LABS: % Iron Saturation 47.76 (12.00-45.00); Chol/HDL Ratio 2.35 Ratio; Creatine Kinase 900 U/L (26-186); Glucose 86 mg/dL (70-110); Iron 149 UG/DL (50-170); LDL Cholesterol,Calculated 65.2 mg/dL (0.0-131.0); Sodium 146 mmol/L (135-145); Total Iron Binding Capacity 312 UG/DL (228-460); Uric Acid 2.6 mg/dL (2.9-7.7); VLDL Calculation 13.98 mg/dL (5.00-40.00)
[2025-05-27 16:31] LABS: ALT 27 U/L (8-44); AST 44 U/L (13-35); Alkaline Phosphatase 96 U/L (41-126); BUN/Creat Ratio 20.38 Ratio (12.00-20.00); Blood Urea Nitrogen 16.3 mg/dL (9.0-27.0); Calcium 9.1 mg/dL (8.7-10.3); Carbon Dioxide 26.1 mmol/L (21.6-31.8); Chloride 110 mmol/L (96-109); Globulin 2.1 g/dL (1.6-3.3); Total Bilirubin 0.5 mg/dL (0.3-1.2); Total Protein 6.1 g/dL (6.2-8.2)
== END | disposition home or self-care (01) ==
LOC: LABWHC1 11:40
PROVIDERS: ATTEND Internal Medicine
DX: Z00.00 Encounter for general adult medical examination without abnormal findings (principal); I10 Essential (primary) hypertension; E78.2 Mixed hyperlipidemia; E11.9 Type 2 diabetes mellitus without complications; R53.82 Chronic fatigue, unspecified; M85.851 Other specified disorders of bone density and structure, right thigh
CPT/HCPCS: 36415; 80053; 80061; 82306; 82550; 82607; 82728; 82746; 83036; 83540; 83550; 83735; 84443; 84550; 85025